=== PATIENT | female | born 1965 | race Caucasian/White ===

== ENCOUNTER → 2017-02-01 | Outpatient (CLI) | payer OTHER ==
[2016-03-20 14:05] VITALS: BP 109/58
[~2017-02-01] MED LIST: AMOX875T PO; Aspirin PO; CLIN150C14 PO; CLOP75TA57 PO; FLUO20CA8 PO; GABA-586 PO; HYDR-971 PO; LISI-334 PO; LISI5TAB PO; LORA-434 PO; MIRT15TA3 PO; PRAV40TA2 PO; RANI150C PO; TRAZ100T12 PO; TRAZ50TA15 PO
--- NOTE | 2017-02-01 09:51 | RAD ---
Abdominal ultrasound Technique and findings: Real-time grayscale and color Doppler evaluation of the organs of the abdomen is performed. The liver is enlarged, measuring in excess of 21 cm. There is diffuse fatty infiltration as well. No focal hepatic parenchymal abnormalities are identified. No intrahepatic biliary ductal dilatation is seen. Gallbladder is fluid distended and notable for shadowing gallstones. No pericholecystic fluid, gallbladder wall thickening, or tenderness to transducer palpation over the gallbladder fossa. Common bile duct measures 8 mm in diameter, which is upper limits of normal. The IVC is patent. The aorta is nonaneurysmal. Visualized portions of the pancreas are unremarkable. Spleen is normal in appearance. The right kidney measures 10.7 x 5.2 x 3.9 cm and the left measures 10.2 x 4.0 x 4.1 cm. There is no hydronephrosis or focal parenchymal abnormality involving either kidney. Both kidneys demonstrate normal color Doppler flow. No free or loculated fluid collections are seen within the abdomen or pelvis. Impression: 1. Cholelithiasis without sonographic evidence of acute cholecystitis. 2. Hepatomegaly with diffuse fatty infiltration of the liver.
== END | disposition home or self-care (01) ==
LOC: US 08:29
PROVIDERS: ATTEND Family Medicine
DX: K80.20 Calculus of gallbladder without cholecystitis without obstruction (principal); K76.0 Fatty (change of) liver, not elsewhere classified
CPT/HCPCS: 76700

== ENCOUNTER 2017-02-16 08:49 | Observation (INO) | payer OTHER ==
[2017-02-16] VITALS (9 sets, daily range): BP systolic 119–133; BP diastolic 52–85
[~2017-02-16] VITALS: Ht 157.5 cm; Wt 78.9 kg
[~2017-02-16 08:49] MED LIST changes: +HYDROmorphone 2 MG/ML VIAL IV PRN; +IV RINGERS,LACTATED 1000ML 1,000 ML IV SCH; +LIDOCAINE 1% 1 ML SYRINGE. ID PRN; +MORPHINE SULFATE 2 MG/ML DISP.SYRIN. IV PRN; +ONDANSETRON PF 4 MG/2 ML VIAL. IV PRN; +PROCHLORPERAZINE 10 MG/2 ML VIAL. IV PRN; +fentaNYL PF VIAL 100 MCG/2 ML VIAL IV PRN
[2017-02-16] MEDS ORDERED: FENO145T2 PO (09:23)
[2017-02-16] MEDS ORDERED: SPIR25TA3 PO (09:23)
[2017-02-16] MEDS ORDERED: ROPI1TAB2 PO (09:23)
[2017-02-16 09:55] LABS: BASO # 0.1 x10^3/uL (0.0-0.2); BASO % 1 % (0-3); EOS % 3 % (0-3); HEMATOCRIT 44.9 % (36.0-47.0); HEMOGLOBIN 14.8 g/dL (12.0-15.5); LYMPH # 1.5 x10^3/uL (1.0-4.8); LYMPH % 17 % (24-48); MEAN CORPUSCULAR HEMOGLOBIN 33 pg (25-35); MEAN CORPUSCULAR HGB CONC 33 g/dL (31-37); MEAN CORPUSCULAR VOLUME 101 fL (79-100); MONO % 9 % (0-9); NEUT % 70 % (31-73); PLATELET COUNT 256 x10^3/uL (140-400); RED BLOOD COUNT 4.46 x10^6/uL (3.50-5.40); RED CELL DISTRIBUTION WIDTH 16.5 % (11.5-14.5); WHITE BLOOD COUNT 9.1 x10^3/uL (4.0-11.0)
[2017-02-16] MEDS ORDERED: ROCURONIUM 100 MG/10 ML VIAL. ONE (11:05)
[2017-02-16] MEDS ORDERED: ONDANSETRON PF 4 MG/2 ML VIAL. ONE (11:05)
[2017-02-16] MEDS ORDERED: fentaNYL PF VIAL 250 MCG/5 ML VIAL ONE (11:05)
[2017-02-16] MEDS ORDERED: MIDAZOLAM HCL/PF 2 MG/2 ML VIAL. ONE (11:05)
[2017-02-16] MEDS ORDERED: PROPOFOL 20 ML IV ONE (11:05)
[2017-02-16] MEDS ORDERED: DEXAMETHASONE SOD PHOS 20 MG/5 ML VIAL. ONE (11:05)
[2017-02-16] MEDS ORDERED: SEVOFLURANE 61 TO 120 MINUTES. IH ONE (11:05)
[2017-02-16] MEDS ORDERED: LIDOCAINE 2% PF Vial for OR 5 ML VIAL. ONE (11:05)
[2017-02-16] MEDS ORDERED: BUPIVACAINE-EPI 0.5%-1:200000 50 ML VIAL. ONE (11:11)
[2017-02-16] MEDS ORDERED: SURGICEL HEMOSTAT 4X8 EACH. ONE ×3 (11:11→13:03)
[2017-02-16] MEDS ORDERED: IOHEXOL 300 MG/ML 50 ML VIAL. ONE (11:11)
[2017-02-16] MEDS ORDERED: LABETALOL 20 MG/4 ML DISP.SYRIN. ONE (12:07)
--- NOTE | 2017-02-16 12:41 | RAD ---
Intraoperative cholangiogram, 02/16/2017: History: Cholecystectomy 7 spot films from surgery are presented for review. Contrast was injected into the cystic duct remnant. 0.8 minutes of fluoroscopy time was utilized. The common duct is mildly dilated.. No filling defect is seen in the common duct to suggest a retained calculus. The major duodenal papilla is mildly prominent but smooth. There is good flow of contrast into the duodenum at the ampulla. The incompletely opacified intrahepatic bile ducts are unremarkable. No contrast extravasation is seen. IMPRESSION: 1. Mild enlargement of the common bile duct. 2. No evidence of a retained biliary tract calculus.
[2017-02-16] MEDS ORDERED: GLYCOPYRROLATE 1 MG/5 ML VIAL. ONE (13:21)
[2017-02-16] MEDS ORDERED: NEOSTIGMINE 10 MG/10 ML VIAL. ONE (13:35)
[2017-02-16] MEDS ORDERED: SEVOFLURANE > 120 MINUTES. IH ONE (13:40)
--- NOTE | 2017-02-16 13:47 | PDOC4 ---
Operative Note Operative Note Operative Note: Preoperative Diagnosis: Symptomatic cholelithiasis Postoperative Diagnosis: Marked chronic calculus cholecystitis Procedure: Laparoscopic cholecystectomy with intraoperative cholangiogram Surgeon: Ben Alley Cleaner: Jelena MANCUSO Anesthesia: Gen. EBL: 200 mL Specimen: Gallbladder to pathology Drains: 19 Syriac round Alo drain to right upper quadrant Complications: None Indication: The patient is a 51-year-old female who is referred with suspected symptomatic cholelithiasis. She was offered surgical treatment with laparoscopic cholecystectomy. The details and risks of surgery were discussed. The risks include bleeding, infection, bile duct injury, bile leak, pain, potential need for additional surgery or procedure. She understands and would like to proceed. Description: The patient was taken to the operating room and placed supine on the operating table. Gen. anesthesia was performed. The abdomen was prepped with ChloraPrep and draped in a standard surgical manner. A small supraumbilical incision was made in the skin through which a Veress needle was inserted and a pneumoperitoneum was created. A visualized 5 mm trocar was inserted and the laparoscope was introduced. In the superior midabdomen a 5 mm trocar was inserted. In the right upper quadrant 2 additional 5 mm trochars were inserted. The gallbladder was identified and had marked adhesions to the omentum. 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 We began mobilizing the omentum off the gallbladder. Manipulation of the gallbladder was very difficult due to the indurated and fibrotic chronic inflammatory reaction. We gradually continue dissection inferiorly. The cystic duct was mobilized from surrounding tissues. One clip was placed on the duct near the gallbladder junction. An opening was made in the cystic duct and a cholangiocatheter placed within and secured with a clip. Using contrast dye and the C-arm an intraoperative cholangiogram performed. No filling defects were identified in the major bile ducts. There was mild dilation of the distal common duct and contrast readily passed into the duodenum. The clip and catheter were both withdrawn. 3 clips were placed on the cystic duct and it was divided. The cystic artery became readily apparent posterior to the duct. This was mobilized doubly clipped and divided. The gallbladder was then mobilized away from the liver primarily with cautery. This proved difficult due to the marked chronic inflammatory reaction which obscured the normal tissue planes. Gradually we were able to fully free up the gallbladder off the liver. There was a very superficial yet sizable vein on the gallbladder fossa that showed prominent oozing. This was readily controlled using FloSeal and Surgicel packs. The superior 5 mm trocar was then exchanged with an 11 mm trocar. A 19 Syriac round Alo drain was left in the right upper quadrant with an exit site in the right lateral port incision. This was secured to the skin with 2-0 silk. The gallbladder was then placed in an endoscopic bag and extracted at the superior incision site. The fascia and skin incisions had to be extended some due to the thickened gallbladder. The fascia was then closed using interrupted 0 PDS sutures. The abdomen was reinsufflated and reexamined. Hemostasis appeared good and the drain remained intact. No other abnormalities were identified. The remaining ports were removed and the pneumoperitoneum was relieved. The skin at all incisions was closed with 4-0 Monocryl. Steri-Strips and dressings were applied. The patient tolerated the procedure well and was sent to the recovery room in stable condition. At the end of the case all counts were correct. STEFANI RUBY MD Feb 16, 2017 13:47
[2017-02-16] MEDS ORDERED: 0.9 % SODIUM CHLORIDE 10 ML DISP.SYRIN. IV PRN (14:00)
[2017-02-16] MEDS ORDERED: ONDANSETRON PF 4 MG/2 ML VIAL. IV PRN (14:00)
[2017-02-16] MEDS ORDERED: oxyCODONE/APAP 5/325 1 TAB TABLET PO PRN (14:00)
[2017-02-16] MEDS ORDERED: HYDROmorphone 2 MG/ML VIAL IV PRN (14:00)
[2017-02-16] MEDS ORDERED: DEXTROSE 50% 25 GM / 50ML DISP.SYRIN. IV PRN (14:00)
[2017-02-16] MEDS ORDERED: ALBUTEROL SULFATE 2.5 MG/3 ML NEBU. NEB ONE (14:45)
[2017-02-16] MEDS ORDERED: hydrALAZINE 20 MG/ML VIAL. ONE (15:23)
[2017-02-16] MEDS: FAMOTIDINE 20 MG TABLET. PO SCH (17:15)
[2017-02-16] MEDS: IV 1/2 NORMAL SALINE 1,000 ML IV SCH (17:15)
[2017-02-16] MEDS: SPIRONOLACTONE 25 MG TABLET PO SCH (17:15)
[2017-02-16] MEDS: rOPINIRole 1 MG TABLET. PO SCH (17:15)
[2017-02-16] MEDS: GABAPENTIN 300 MG CAPSULE. PO SCH ×2 (17:15→20:42)
[2017-02-16] MEDS: oxyCODONE/APAP 5/325 1 TAB TABLET PO PRN (17:16)
[2017-02-16] MEDS: ATORVASTATIN CALCIUM 10 MG TABLET. PO SCH (20:42)
[2017-02-16] MEDS ORDERED: traZODone 100 MG TABLET. PO SCH (21:00)
[2017-02-16] MEDS ORDERED: PNEUMOCOCCAL VAX SCREEN BY RX. MC PRN (21:30)
[2017-02-16] MEDS ORDERED: INFLUENZA VAX SCREEN BY RX. MC ONE (21:30)
[2017-02-17 03:00] VITALS: BP 101/48
[2017-02-17] MEDS: IV 1/2 NORMAL SALINE 1,000 ML IV SCH ×2 (06:00→15:40)
[2017-02-17 07:00] VITALS: BP 103/53
[2017-02-17] MEDS: rOPINIRole 1 MG TABLET. PO SCH (07:59)
[2017-02-17] MEDS: MIRTAZAPINE 15 MG TABLET PO SCH (07:59)
[2017-02-17] MEDS: GABAPENTIN 300 MG CAPSULE. PO SCH ×3 (08:00→20:05)
[2017-02-17] MEDS: FLUoxetine HCL 20 MG CAPSULE PO SCH (08:00)
[2017-02-17] MEDS: FAMOTIDINE 20 MG TABLET. PO SCH (08:00)
[2017-02-17] MEDS: oxyCODONE/APAP 5/325 1 TAB TABLET PO PRN (08:00)
[2017-02-17] MEDS: SPIRONOLACTONE 25 MG TABLET PO SCH (09:00)
[2017-02-17 09:03] LABS: BASO # 0.1 x10^3/uL (0.0-0.2); BASO % 1 % (0-3); EOS % 0 % (0-3); HEMATOCRIT 39.4 % (36.0-47.0); HEMOGLOBIN 13.1 g/dL (12.0-15.5); LYMPH # 1.2 x10^3/uL (1.0-4.8); LYMPH % 7 % (24-48); MEAN CORPUSCULAR HEMOGLOBIN 34 pg (25-35); MEAN CORPUSCULAR HGB CONC 33 g/dL (31-37); MEAN CORPUSCULAR VOLUME 100 fL (79-100); MONO % 7 % (0-9); NEUT % 85 % (31-73); PLATELET COUNT 224 x10^3/uL (140-400); RED BLOOD COUNT 3.92 x10^6/uL (3.50-5.40); RED CELL DISTRIBUTION WIDTH 16.8 % (11.5-14.5); WHITE BLOOD COUNT 16.4 x10^3/uL (4.0-11.0)
[2017-02-17 09:48] LABS: PLT ESTIMATE ADEQUATE (ADEQUATE)
[2017-02-17 11:00] VITALS: BP 118/59
--- NOTE | 2017-02-17 12:42 | PDOC ---
MARIA LUISA RODRIGEZ DIRECTOR GLOBAL DEVELOPMENT 02/17/17 1242: SURGICAL PROGRESS NOTE Subjective tolerating diet pain managed ambulating o2 dropping in 60% on RA--does not wear o2 at home, hx of COPD Vital Signs Vital Signs Date Time Temp Pulse Resp B/P (MAP) Pulse Ox O2 Delivery O2 Flow Rate FiO2 02/17/17 11:00 98.1 69 20 118/59 (78) 85 Nasal Cannula 3.0 98.1 General: Alert, Oriented X3, Cooperative, No acute distress Abdomen: Soft, Other (lap dressings dry, Jayden bloody) Labs Laboratory Tests Test 02/16/17 09:40 02/17/17 08:10 White Blood Count 9.1 x10^3/uL (4.0-11.0) 16.4 x10^3/uL (4.0-11.0) Red Blood Count 4.46 x10^6/uL (3.50-5.40) 3.92 x10^6/uL (3.50-5.40) Hemoglobin 14.8 g/dL (12.0-15.5) 13.1 g/dL (12.0-15.5) Hematocrit 44.9 % (36.0-47.0) 39.4 % (36.0-47.0) Mean Corpuscular Volume 101 fL (79-100) 100 fL (79-100) Mean Corpuscular Hemoglobin 33 pg (25-35) 34 pg (25-35) Mean Corpuscular Hemoglobin Concent 33 g/dL (31-37) 33 g/dL (31-37) Red Cell Distribution Width 16.5 % (11.5-14.5) 16.8 % (11.5-14.5) Platelet Count 256 x10^3/uL (140-400) 224 x10^3/uL (140-400) Neutrophils (%) (Auto) 70 % (31-73) 85 % (31-73) Lymphocytes (%) (Auto) 17 % (24-48) 7 % (24-48) Monocytes (%) (Auto) 9 % (0-9) 7 % (0-9) Eosinophils (%) (Auto) 3 % (0-3) 0 % (0-3) Basophils (%) (Auto) 1 % (0-3) 1 % (0-3) Neutrophils # (Auto) 6.3 x10^3uL (1.8-7.7) 14.0 x10^3uL (1.8-7.7) Lymphocytes # (Auto) 1.5 x10^3/uL (1.0-4.8) 1.2 x10^3/uL (1.0-4.8) Monocytes # (Auto) 0.8 x10^3/uL (0.0-1.1) 1.2 x10^3/uL (0.0-1.1) Eosinophils # (Auto) 0.3 x10^3/uL (0.0-0.7) 0.0 x10^3/uL (0.0-0.7) Basophils # (Auto) 0.1 x10^3/uL (0.0-0.2) 0.1 x10^3/uL (0.0-0.2) Segmented Neutrophils % 89 % (35-66) Lymphocytes % 3 % (24-48) Monocytes % 8 % (0-10) Platelet Estimate Adequate (ADEQUATE) Laboratory Tests Test 02/17/17 08:10 White Blood Count 16.4 x10^3/uL (4.0-11.0) Red Blood Count 3.92 x10^6/uL (3.50-5.40) Hemoglobin 13.1 g/dL (12.0-15.5) Hematocrit 39.4 % (36.0-47.0) Mean Corpuscular Volume 100 fL (79-100) Mean Corpuscular Hemoglobin 34 pg (25-35) Mean Corpuscular Hemoglobin Concent 33 g/dL (31-37) Red Cell Distribution Width 16.8 % (11.5-14.5) Platelet Count 224 x10^3/uL (140-400) Neutrophils (%) (Auto) 85 % (31-73) Lymphocytes (%) (Auto) 7 % (24-48) Monocytes (%) (Auto) 7 % (0-9) Eosinophils (%) (Auto) 0 % (0-3) Basophils (%) (Auto) 1 % (0-3) Neutrophils # (Auto) 14.0 x10^3uL (1.8-7.7) Lymphocytes # (Auto) 1.2 x10^3/uL (1.0-4.8) Monocytes # (Auto) 1.2 x10^3/uL (0.0-1.1) Eosinophils # (Auto) 0.0 x10^3/uL (0.0-0.7) Basophils # (Auto) 0.1 x10^3/uL (0.0-0.2) Segmented Neutrophils % 89 % (35-66) Lymphocytes % 3 % (24-48) Monocytes % 8 % (0-10) Platelet Estimate Adequate (ADEQUATE) Assessment/Plan s/p lap ras continue drain will consult pulm for hypoxia, copd dc when pulm eval complete, will need JAYDEN for 1 week, FU in clinic Problems: STEFANI RUBY MD 02/17/17 1328: SURGICAL PROGRESS NOTE Assessment/Plan Above reviewed, note postop hypoxia, Pulm to see Problems: MARIA LUISA RODRIGEZ DIRECTOR GLOBAL DEVELOPMENT Feb 17, 2017 12:42 STEFANI RUBY MD Feb 17, 2017 13:28
[2017-02-17] MEDS ORDERED: OXYC1TAB7 PO (12:46)
--- NOTE | 2017-02-17 13:59 | RAD ---
Single Views of the Chest 02/17/2017 2:14 PM Indication: hypoxemia Comparison: Chest radiograph February 29, 2016 Findings: Low inspiratory volumes are noted. There are linear infiltrates or atelectasis in the left lung base. No pneumothorax or definitive effusion is seen. Heart size is normal. Bony thorax is unchanged. Impression: Low lung volumes with left basilar atelectasis or infiltrate. Consider follow-up two-view chest radiographs with attention to depth of inspiration.
[2017-02-17 15:00] VITALS: BP 108/49
--- NOTE | 2017-02-17 15:05 | PDOC ---
PULMONARY PROGRESS NOTES Vitals Vital Signs Date Time Temp Pulse Resp B/P (MAP) Pulse Ox O2 Delivery O2 Flow Rate FiO2 02/17/17 11:00 98.1 69 20 118/59 (78) 85 Nasal Cannula 3.0 98.1 Lungs: Clear Labs Laboratory Tests Test 02/16/17 09:40 02/17/17 08:10 White Blood Count 9.1 x10^3/uL (4.0-11.0) 16.4 x10^3/uL (4.0-11.0) Red Blood Count 4.46 x10^6/uL (3.50-5.40) 3.92 x10^6/uL (3.50-5.40) Hemoglobin 14.8 g/dL (12.0-15.5) 13.1 g/dL (12.0-15.5) Hematocrit 44.9 % (36.0-47.0) 39.4 % (36.0-47.0) Mean Corpuscular Volume 101 fL (79-100) 100 fL (79-100) Mean Corpuscular Hemoglobin 33 pg (25-35) 34 pg (25-35) Mean Corpuscular Hemoglobin Concent 33 g/dL (31-37) 33 g/dL (31-37) Red Cell Distribution Width 16.5 % (11.5-14.5) 16.8 % (11.5-14.5) Platelet Count 256 x10^3/uL (140-400) 224 x10^3/uL (140-400) Neutrophils (%) (Auto) 70 % (31-73) 85 % (31-73) Lymphocytes (%) (Auto) 17 % (24-48) 7 % (24-48) Monocytes (%) (Auto) 9 % (0-9) 7 % (0-9) Eosinophils (%) (Auto) 3 % (0-3) 0 % (0-3) Basophils (%) (Auto) 1 % (0-3) 1 % (0-3) Neutrophils # (Auto) 6.3 x10^3uL (1.8-7.7) 14.0 x10^3uL (1.8-7.7) Lymphocytes # (Auto) 1.5 x10^3/uL (1.0-4.8) 1.2 x10^3/uL (1.0-4.8) Monocytes # (Auto) 0.8 x10^3/uL (0.0-1.1) 1.2 x10^3/uL (0.0-1.1) Eosinophils # (Auto) 0.3 x10^3/uL (0.0-0.7) 0.0 x10^3/uL (0.0-0.7) Basophils # (Auto) 0.1 x10^3/uL (0.0-0.2) 0.1 x10^3/uL (0.0-0.2) Segmented Neutrophils % 89 % (35-66) Lymphocytes % 3 % (24-48) Monocytes % 8 % (0-10) Platelet Estimate Adequate (ADEQUATE) Laboratory Tests Test 02/17/17 08:10 White Blood Count 16.4 x10^3/uL (4.0-11.0) Red Blood Count 3.92 x10^6/uL (3.50-5.40) Hemoglobin 13.1 g/dL (12.0-15.5) Hematocrit 39.4 % (36.0-47.0) Mean Corpuscular Volume 100 fL (79-100) Mean Corpuscular Hemoglobin 34 pg (25-35) Mean Corpuscular Hemoglobin Concent 33 g/dL (31-37) Red Cell Distribution Width 16.8 % (11.5-14.5) Platelet Count 224 x10^3/uL (140-400) Neutrophils (%) (Auto) 85 % (31-73) Lymphocytes (%) (Auto) 7 % (24-48) Monocytes (%) (Auto) 7 % (0-9) Eosinophils (%) (Auto) 0 % (0-3) Basophils (%) (Auto) 1 % (0-3) Neutrophils # (Auto) 14.0 x10^3uL (1.8-7.7) Lymphocytes # (Auto) 1.2 x10^3/uL (1.0-4.8) Monocytes # (Auto) 1.2 x10^3/uL (0.0-1.1) Eosinophils # (Auto) 0.0 x10^3/uL (0.0-0.7) Basophils # (Auto) 0.1 x10^3/uL (0.0-0.2) Segmented Neutrophils % 89 % (35-66) Lymphocytes % 3 % (24-48) Monocytes % 8 % (0-10) Platelet Estimate Adequate (ADEQUATE) Medications Active Scripts Medications Dose Route/Sig Max Daily Dose Days Date Category Fenofibrate (Fenofibrate Nanocrystallized) 145 Mg Tablet 1 Tab PO DAILY 02/16/17 Reported Ropinirole Hcl 1 Mg Tablet 1 Mg PO DAILY 02/16/17 Reported Spironolactone 25 Mg Tablet 1 Tab PO DAILY 02/16/17 Reported Goodman 5-325 Tablet (Acetaminophen/Hydrocodone Bitart) 1 Each Tablet 1 Tab PO PRN Q6HRS PRN 12/30/15 Rx Fluoxetine Hcl 20 Mg Capsule 20 Mg PO DAILY 11/21/14 Reported Mirtazapine 15 Mg Tablet 15 Mg PO DAILY 11/21/14 Reported Gabapentin 300 Mg Capsule 300 Mg PO TID 11/21/14 Reported Trazodone Hcl 100 Mg Tablet 100 Tab PO QHS 05/01/14 Rx Plavix (Clopidogrel Bisulfate) 75 Mg Tablet 75 Mg PO DAILYWBKFT 01/04/14 Rx Ranitidine Hcl 150 Mg Capsule 150 Mg PO DAILY 01/01/14 Reported Pravastatin Sodium 40 Mg Tablet 40 Mg PO DAILY 01/01/14 Reported Impression . FULL CONSULT DICTATED THANKS AVOID SEDATING MED PRN PUJA BE MD Feb 17, 2017 15:05
--- NOTE | 2017-02-17 15:52 | PATHOLOGY ---
PATHOLOGY REPORT * * * * * * * * FINAL DIAGNOSIS: Gallbladder "gallbladder and contents": - Chronic cholecystitis with fibrosis, calcified wilkinson and with cholelithiasis. (SHA/db; 02/17/2017) REPORT ELECTRONICALLY SIGNED BY: Theo Red M.D. DATE/TIME: 02/17/2017 15:51 * * * * * * * * GROSS PATHOLOGY: Received in formalin labeled "Mahesh Aponte, gallbladder with contents," is a 7.1 x 4.4 x 5.0 cm, intact gallbladder with light bui, slightly wrinkled serosal surfaces. Opening the gallbladder reveals light bui, grainy mucosa and an average wall thickness of 0.3 cm. Calculi are present, measuring 0.2-1.9 cm in maximum dimension, displaying a light bui color and granular appearance, and feeling friable to the touch. No masses are noted grossly. Game Developer sections from the body and fundus are submitted along with the proximal margin in cassette A1. (TSD; 02/16/2017) INITIAL CPT CODE(S): A; 47081 Professional services performed by [facility] [place] [address] Technical services performed by [facility] at [address] [place] [address]. SPECIMEN(S) RECEIVED: A.Gallbladder and contents CLINICAL HISTORY: Pre-OP DX: symptomatic cholelithiasis PATIENT: MAHESH APONTE /AGE: 7 1965 (Age: 51) PATIENT #: [id number] ALT CASE #: SPECIMEN COLLECTION DATE: 02/16/2017 SPECIMEN RECEIVED DATE: 02/16/2017 [facility] - [address] [place] [address] - PHONE: [phone] * * * END OF REPORT * * *
[2017-02-17 19:00] VITALS: BP 125/65
--- NOTE | 2017-02-17 19:22 | CONS ---
DATE OF CONSULTATION: 02/17/2017 ATTENDING PHYSICIAN: Garrett Contreras MD. REASON FOR CONSULTATION: The patient is seen in pulmonary consultation at the request of Dr. Contreras for hypoxemia. HISTORY OF PRESENT ILLNESS: The patient is a 51-year-old with a history of COPD, has cut down quite a bit on her smoking, presented for elective cholecystectomy. She was found to have hypoxemia post-surgery. I was asked to see her in consultation. During my evaluation, the patient was somewhat sleepy, she has received some sedation, she was not taking any deep breath. I queried her about COPD exacerbation, she experiences approximately 2 per year. Otherwise, she has daily cough mostly nonproductive, no hemoptysis. No prior history of DVT or pulmonary embolism. She does not wear oxygen at home. PAST MEDICAL HISTORY: COPD, tobacco dependence, CVA, carotid artery stenosis, hypertension, hyperlipidemia, gastroesophageal reflux. PAST SURGICAL HISTORY: Status post tonsillectomy and tubal ligation. HOME MEDICATIONS: List was reviewed. She is utilizing Advair and p.r.n. albuterol. ALLERGIES: No known drug allergies. SOCIAL HISTORY: She continues to smoke. Denies any alcohol intake. Lives with her . REVIEW OF SYSTEMS: As indicated above, but otherwise, 10-point system was reviewed and negative. PHYSICAL EXAMINATION: VITAL SIGNS: She is currently requiring 3 liters of oxygen supplementation to maintain saturations above 90%, at one point she was down to 85%. HEENT: Eyes, the sclerae were nonicteric. NECK: Jugular venous distention was not elevated. No lymphadenopathy. CHEST: Full expansion. LUNGS: Poor airway flow with crackles in the bases. No wheezes. CARDIOVASCULAR: Regular rate and rhythm with S1, S2, no S3. ABDOMEN: Soft, nontender, nondistended. EXTREMITIES: No clubbing, cyanosis or pitting edema. NEUROLOGIC: The patient was sleepy, but arousable. A detailed neuro exam was not performed. LABORATORY DATA: Chest x-ray is pending. Labs were reviewed. Arterial blood gas, none available. White count was slightly elevated. IMPRESSION: 1. Acute respiratory failure secondary to underlying chronic obstructive pulmonary disease, recent surgery with poor inspiratory effort and hypoventilation from pain medication. 2. Status post laparoscopic cholecystectomy. 3. Tobacco dependence. 4. Cerebrovascular accident. 5. Carotid artery stenosis. 6. Hypertension. PLAN: 1. I spoke with the patient that she needs to try to avoid any additional pain medication. I spoke with the nurse and informed her of the same. 2. Place the patient on end tidal CO2 monitor. 3. Discontinue Dilaudid. 4. Discontinue trazodone. 4. Monitor for any further respiratory distress. 5. Obtain chest x-ray. 6. Incentive spirometry. The above was discussed with the at the bedside and the patient. All questions were answered. I do appreciate the privilege of sharing in this patient's care. PUJA MOSQUERA MD DR: DREW/maxine JOB#: [id number] / [id number]
[2017-02-17] MEDS: ATORVASTATIN CALCIUM 10 MG TABLET. PO SCH (20:05)
[2017-02-17 23:00] VITALS: BP 119/61
[2017-02-18 03:00] VITALS: BP 143/63
[2017-02-18] MEDS: IV 1/2 NORMAL SALINE 1,000 ML IV SCH (03:19)
[2017-02-18 07:20] VITALS: BP 136/64
[2017-02-18] MEDS: rOPINIRole 1 MG TABLET. PO SCH (10:01)
[2017-02-18] MEDS: GABAPENTIN 300 MG CAPSULE. PO SCH (10:01)
[2017-02-18] MEDS: MIRTAZAPINE 15 MG TABLET PO SCH (10:01)
[2017-02-18] MEDS: FAMOTIDINE 20 MG TABLET. PO SCH (10:01)
[2017-02-18] MEDS: FLUoxetine HCL 20 MG CAPSULE PO SCH (10:01)
[2017-02-18] MEDS: SPIRONOLACTONE 25 MG TABLET PO SCH (10:01)
--- NOTE | 2017-02-18 10:21 | PDOC ---
PULMONARY PROGRESS NOTES Subjective PT FEELS BETTER READY FOR D/C Vitals Vital Signs Date Time Temp Pulse Resp B/P (MAP) Pulse Ox O2 Delivery O2 Flow Rate FiO2 02/18/17 07:20 96.3 69 16 136/64 (88) 3 Nasal Cannula 96.3 02/18/17 03:00 3.0 ROS: No Nausea, No Chest Pain, No Abdominal Pain, No Increase Cough Lungs: Clear, Crackles Cardiovascular: S1 Abdomen: Soft, Non-tender Neuro Exam: Alert Extremities: No Edema Skin: Warm Labs Laboratory Tests Test 02/17/17 08:10 White Blood Count 16.4 x10^3/uL (4.0-11.0) Red Blood Count 3.92 x10^6/uL (3.50-5.40) Hemoglobin 13.1 g/dL (12.0-15.5) Hematocrit 39.4 % (36.0-47.0) Mean Corpuscular Volume 100 fL (79-100) Mean Corpuscular Hemoglobin 34 pg (25-35) Mean Corpuscular Hemoglobin Concent 33 g/dL (31-37) Red Cell Distribution Width 16.8 % (11.5-14.5) Platelet Count 224 x10^3/uL (140-400) Neutrophils (%) (Auto) 85 % (31-73) Lymphocytes (%) (Auto) 7 % (24-48) Monocytes (%) (Auto) 7 % (0-9) Eosinophils (%) (Auto) 0 % (0-3) Basophils (%) (Auto) 1 % (0-3) Neutrophils # (Auto) 14.0 x10^3uL (1.8-7.7) Lymphocytes # (Auto) 1.2 x10^3/uL (1.0-4.8) Monocytes # (Auto) 1.2 x10^3/uL (0.0-1.1) Eosinophils # (Auto) 0.0 x10^3/uL (0.0-0.7) Basophils # (Auto) 0.1 x10^3/uL (0.0-0.2) Segmented Neutrophils % 89 % (35-66) Lymphocytes % 3 % (24-48) Monocytes % 8 % (0-10) Platelet Estimate Adequate (ADEQUATE) Medications Active Scripts Medications Dose Route/Sig Max Daily Dose Days Date Category Fenofibrate (Fenofibrate Nanocrystallized) 145 Mg Tablet 1 Tab PO DAILY 02/16/17 Reported Ropinirole Hcl 1 Mg Tablet 1 Mg PO DAILY 02/16/17 Reported Spironolactone 25 Mg Tablet 1 Tab PO DAILY 02/16/17 Reported Hastings 5-325 Tablet (Acetaminophen/Hydrocodone Bitart) 1 Each Tablet 1 Tab PO PRN Q6HRS PRN 12/30/15 Rx Fluoxetine Hcl 20 Mg Capsule 20 Mg PO DAILY 11/21/14 Reported Mirtazapine 15 Mg Tablet 15 Mg PO DAILY 11/21/14 Reported Gabapentin 300 Mg Capsule 300 Mg PO TID 11/21/14 Reported Trazodone Hcl 100 Mg Tablet 100 Tab PO QHS 05/01/14 Rx Plavix (Clopidogrel Bisulfate) 75 Mg Tablet 75 Mg PO DAILYWBKFT 01/04/14 Rx Ranitidine Hcl 150 Mg Capsule 150 Mg PO DAILY 01/01/14 Reported Pravastatin Sodium 40 Mg Tablet 40 Mg PO DAILY 01/01/14 Reported Impression . 1. Acute respiratory failure secondary to underlying chronic obstructive pulmonary disease, recent surgery with poor inspiratory effort and hypoventilation from pain medication. 2. Status post laparoscopic cholecystectomy. 3. Tobacco dependence. 4. Cerebrovascular accident. 5. Carotid artery stenosis. 6. Hypertension. Plan . 6 MIN WALK POSITIVE WILL NEED 02 RX WRITTEN 1 D/C HOME FOLLOW UP WITH ME 2. Place the patient on end tidal CO2 monitor. 3. Discontinue Dilaudid. 4. Discontinue trazodone. 4. Monitor for any further respiratory distress. 5. CXR REVIEWED 6. Incentive spirometry. PUJA MOSQUERA MD Feb 18, 2017 10:21
[2017-02-18 10:58] VITALS: BP 147/61
--- NOTE | 2017-02-18 12:38 | PDOC ---
SURGICAL PROGRESS NOTE Subjective tolerating diet will need O2 at home, pulm has seen Vital Signs Vital Signs Date Time Temp Pulse Resp B/P (MAP) Pulse Ox O2 Delivery O2 Flow Rate FiO2 02/18/17 10:58 97.5 78 16 147/61 (89) 91 Room Air 97.5 02/18/17 08:10 2.0 General: Alert, Oriented X3, Cooperative, No acute distress Abdomen: Soft, Other (lap sites c/d/i, no erythema, WENCESLAO serosang) Labs Laboratory Tests Test 02/17/17 08:10 White Blood Count 16.4 x10^3/uL (4.0-11.0) Red Blood Count 3.92 x10^6/uL (3.50-5.40) Hemoglobin 13.1 g/dL (12.0-15.5) Hematocrit 39.4 % (36.0-47.0) Mean Corpuscular Volume 100 fL (79-100) Mean Corpuscular Hemoglobin 34 pg (25-35) Mean Corpuscular Hemoglobin Concent 33 g/dL (31-37) Red Cell Distribution Width 16.8 % (11.5-14.5) Platelet Count 224 x10^3/uL (140-400) Neutrophils (%) (Auto) 85 % (31-73) Lymphocytes (%) (Auto) 7 % (24-48) Monocytes (%) (Auto) 7 % (0-9) Eosinophils (%) (Auto) 0 % (0-3) Basophils (%) (Auto) 1 % (0-3) Neutrophils # (Auto) 14.0 x10^3uL (1.8-7.7) Lymphocytes # (Auto) 1.2 x10^3/uL (1.0-4.8) Monocytes # (Auto) 1.2 x10^3/uL (0.0-1.1) Eosinophils # (Auto) 0.0 x10^3/uL (0.0-0.7) Basophils # (Auto) 0.1 x10^3/uL (0.0-0.2) Segmented Neutrophils % 89 % (35-66) Lymphocytes % 3 % (24-48) Monocytes % 8 % (0-10) Platelet Estimate Adequate (ADEQUATE) Problem List s/p lap ras home with Drain FU next week FU with pulm Problems: NICKEL,MARIA LUISA L OPERATING SYSTEMS SPECIALIST Feb 18, 2017 12:38
== END 2017-02-18 14:00 | disposition home or self-care (01) ==
LOC: SURG 08:49 → 4 NORTH 13:55
PROVIDERS: ADMIT Surgery; ATTEND Surgery
DX: K80.10 Calculus of gallbladder with chronic cholecystitis without obstruction (principal); J44.1 Chronic obstructive pulmonary disease with (acute) exacerbation; J96.01 Acute respiratory failure with hypoxia; F17.200 Nicotine dependence, unspecified, uncomplicated; E78.5 Hyperlipidemia, unspecified; I10 Essential (primary) hypertension; I65.29 Occlusion and stenosis of unspecified carotid artery; K21.9 Gastro-esophageal reflux disease without esophagitis; K66.0 Peritoneal adhesions (postprocedural) (postinfection); Z86.73 Personal history of transient ischemic attack (TIA), and cerebral infarction without residual deficits
CPT/HCPCS: 36415; 47563; 71010; 74300; 85007; 85025; 88304; 94620; 94640; 96374; C1769; G0378; G0379; J0360; J0690; J1100; J1170; J2250; J2405; J2704; J2710; J3010; J3490; J7030; J7120; J7613; Q9967; J2001

== ENCOUNTER 2017-03-25 18:21 | Inpatient (IN) | payer OTHER ==
[~2017-03-25] VITALS: Ht 157.5 cm; Wt 81.0 kg
[~2017-03-25 18:21] MED LIST changes: +FENO145T2 PO; -HYDROmorphone 2 MG/ML VIAL IV PRN; -IV RINGERS,LACTATED 1000ML 1,000 ML IV SCH; -LIDOCAINE 1% 1 ML SYRINGE. ID PRN; -MORPHINE SULFATE 2 MG/ML DISP.SYRIN. IV PRN; -ONDANSETRON PF 4 MG/2 ML VIAL. IV PRN; +OXYC1TAB7 PO; -PROCHLORPERAZINE 10 MG/2 ML VIAL. IV PRN; +ROPI1TAB2 PO; +SPIR25TA3 PO; -fentaNYL PF VIAL 100 MCG/2 ML VIAL IV PRN
[2017-03-25] MEDS ORDERED: ONDANSETRON PF 4 MG/2 ML VIAL. IV ONE (18:45)
[2017-03-25] MEDS ORDERED: fentaNYL PF VIAL 100 MCG/2 ML VIAL IV PRN ×2 (18:45→21:15)
[2017-03-25] MEDS ORDERED: IV NORMAL SALINE 1000ML BAG 1,000 ML IV SCH (18:45)
[2017-03-25] MEDS ORDERED: FAMOTIDINE 20 MG/2 ML VIAL IVP ONE (18:45)
--- NOTE | 2017-03-25 18:54 | PHYS DOC ---
Past Medical History Past Medical History: Asthma, Bronchitis, CVA, Hypertension Past Surgical History: Other Additional Past Surgical Histo: endarectomy Alcohol Use: None Drug Use: None Adult General Chief Complaint Chief Complaint: FLANK PAIN HPI HPI Patient is a 51 year old female who presents with complaint of right-sided abdominal pain and flank pain for the past 10 days. Patient states that the pain has been progressively worsening over the past week and a half. Patient states that the pain radiates towards her right lower quadrant. Patient describes the pain as throbbing but also is intermittently sharp. Patient denies any associated diarrhea, nausea, vomiting, or fever with her symptoms. Patient states that she has noticed increased urinary frequency but denies dysuria or hematuria. Patient has been taking ibuprofen with symptoms with no relief. Patient denies history of similar symptoms. The patient was recently admitted to the hospital on February 16 and underwent a laparoscopic cholecystectomy. Patient states that she has been healing well from her surgery and had been feeling quite a bit better until the last 10 days. Review of Systems Review of Systems Constitutional: Denies fever or chills [] Eyes: Denies change in visual acuity, redness, or eye pain [] HENT: Denies nasal congestion or sore throat [] Respiratory: Denies cough or shortness of breath [] Cardiovascular: Denies chest pain or edema[] GI: Abdominal pain, right flank pain, denies nausea, vomiting, bloody stools or diarrhea [] : Increased urinary frequency, denies dysuria or hematuria [] Musculoskeletal: Denies back pain or joint pain [] Integument: Denies rash or skin lesions [] Neurologic: Denies headache, focal weakness or sensory changes [] Current Medications Current Medications Current Medications Medications (Trade) Dose Ordered Sig/[facility] Start Time Stop Time Status Last Admin Dose Admin Famotidine (Pepcid) 20 mg 1X ONCE 03/25/17 18:45 03/25/17 18:51 DC 03/25/17 19:07 20 MG Fentanyl Citrate (Fentanyl 2ml Vial) 50 mcg PRN Q15MIN PRN 03/25/17 18:45 03/26/17 18:44 03/25/17 19:07 50 MCG Info (Do NOT chart on this entry -- for MONITORING) 1 each PRN DAILY PRN 03/25/17 20:00 03/27/17 19:59 Iohexol (Omnipaque 240 Mg/ml) 50 ml 1X ONCE 03/25/17 20:00 03/25/17 20:01 DC 03/25/17 20:26 50 ML Iohexol (Omnipaque 300 Mg/ml) 75 ml 1X ONCE 03/25/17 20:00 03/25/17 20:01 DC 03/25/17 20:19 75 ML Ondansetron HCl (Zofran) 4 mg 1X ONCE 03/25/17 18:45 03/25/17 18:51 DC 03/25/17 19:07 4 MG Sodium Chloride 1,000 ml @ 100 mls/hr Q10H 03/25/17 18:45 03/26/17 04:44 03/25/17 19:07 100 MLS/HR Allergies Allergies Allergies Coded Allergies Type Severity Reaction Last Updated Verified No Known Drug Allergies 02/16/17 No Physical Exam Physical Exam Constitutional: Alert, afebrile,, appears in mild to moderate discomfort. [] HENT: Normocephalic, atraumatic, bilateral external ears normal, oropharynx moist, no oral exudates, nose normal. [] Eyes: PERRLA, EOMI, conjunctiva normal, no discharge. [] Neck: Normal range of motion, no tenderness, supple, no stridor. [] Cardiovascular:Heart rate regular rhythm, no murmur [] Lungs & Thorax: Mildly her strict air movement bilaterally, no wheezes, rales[] Abdomen: Bowel sounds normal, soft, tenderness to palpation along right upper and lower quadrant with minimal guarding, no rebound tenderness, no masses, no pulsatile masses. [] Skin: Warm, dry, no erythema, no rash. [] Back: Right CVA tenderness, no midline tenderness, no flank ecchymosis. [] Extremities: No tenderness, no cyanosis, no clubbing, ROM intact, no edema. [] Neurologic: Alert and oriented X 3, normal motor function, normal sensory function, no focal deficits noted. [] Current Patient Data Vital Signs Vital Signs Date Time Temp Pulse Resp B/P (MAP) Pulse Ox O2 Delivery O2 Flow Rate FiO2 03/25/17 19:07 18 95 Nasal Cannula 2.0 03/25/17 18:35 98.1 62 154/70 (98) 98.1 Lab Values Laboratory Tests Test 03/25/17 18:44 03/25/17 19:10 White Blood Count 11.0 x10^3/uL (4.0-11.0) Red Blood Count 4.22 x10^6/uL (3.50-5.40) Hemoglobin 14.2 g/dL (12.0-15.5) Hematocrit 42.7 % (36.0-47.0) Mean Corpuscular Volume 101 fL (79-100) H Mean Corpuscular Hemoglobin 34 pg (25-35) Mean Corpuscular Hemoglobin Concent 33 g/dL (31-37) Red Cell Distribution Width 15.5 % (11.5-14.5) H Platelet Count 207 x10^3/uL (140-400) Neutrophils (%) (Auto) 62 % (31-73) Lymphocytes (%) (Auto) 22 % (24-48) L Monocytes (%) (Auto) 9 % (0-9) Eosinophils (%) (Auto) 6 % (0-3) H Basophils (%) (Auto) 1 % (0-3) Neutrophils # (Auto) 6.8 x10^3uL (1.8-7.7) Lymphocytes # (Auto) 2.4 x10^3/uL (1.0-4.8) Monocytes # (Auto) 0.9 x10^3/uL (0.0-1.1) Eosinophils # (Auto) 0.7 x10^3/uL (0.0-0.7) Basophils # (Auto) 0.1 x10^3/uL (0.0-0.2) Urine Collection Type Unknown Urine Color Yellow Urine Clarity Clear Urine pH 6.0 Urine Specific [place] 1.010 Urine Protein Negative mg/dL (NEG-TRACE) Urine Glucose (UA) Negative mg/dL (NEG) Urine Ketones (Stick) Negative mg/dL (NEG) Urine Blood Negative (NEG) Urine Nitrite Negative (NEG) Urine Bilirubin Negative (NEG) Urine Urobilinogen Dipstick 0.2 mg/dL (0.2 mg/dL) Urine Leukocyte Esterase Negative (NEG) Urine RBC Rare /HPF (0-2) Urine WBC Rare /HPF (0-4) Urine Squamous Epithelial Cells Mod /LPF Urine Bacteria 0 /HPF (0-FEW) Urine Yeast Present /HPF Sodium Level 143 mmol/L (136-145) Potassium Level 3.4 mmol/L (3.5-5.1) L Chloride Level 102 mmol/L (98-107) Carbon Dioxide Level 33 mmol/L (21-32) H Anion Gap 8 (6-14) Blood Urea Nitrogen 9 mg/dL (7-20) Creatinine 0.9 mg/dL (0.6-1.0) Estimated GFR (Cockcroft-Gault) 66.3 BUN/Creatinine Ratio 10 (6-20) Glucose Level 118 mg/dL (70-99) H Calcium Level 9.5 mg/dL (8.5-10.1) Total Bilirubin 0.2 mg/dL (0.2-1.0) Aspartate Amino Transferase (AST) 11 U/L (15-37) L Alanine Aminotransferase (ALT) 18 U/L (14-59) Alkaline Phosphatase 48 U/L (46-116) Troponin I Quantitative < 0.017 ng/mL (0.000-0.055) Total Protein 7.2 g/dL (6.4-8.2) Albumin 3.5 g/dL (3.4-5.0) Albumin/Globulin Ratio 0.9 (1.0-1.7) L Lipase 272 U/L (73-393) Laboratory Tests 03/25/17 18:44 Laboratory Tests 03/25/17 19:10 EKG EKG Interpreted by me: Heart rate 57, sinus rhythm, normal intervals, leftward axis , T-wave inversions in V2 through V4 new onset compared to previous EKG, no acute ST elevations or depressions Radiology/Procedures Radiology/Procedures [facility] [address] [place], [place] [id number] IMAGING REPORT Signed PATIENT: MAHESH SHEA ACCOUNT: [id number] : 1965 LOCATION: ER AGE: 51 SEX: F EXAM STATUS: REG ER ORD. PHYSICIAN: NICHOL SMILEY MD REASON: right-sided abdominal pain for 10 days, no vomiting PROCEDURE: CT ABD PELV W/ORAL&IV CONTRAST CT Abdomen and Pelvis With Intravenous Contrast: History: Right-sided abdominal pain radiating to back for 10 days. Comparison: None.. Technique: After administration of oral and intravenous contrast administration, 75 mL Omnipaque-300, CT of the abdomen and pelvis was performed. Exposure: One or more of the following individualized dose reduction techniques were utilized for this examination: 1. Automated exposure control 2. Adjustment of the mA and/or kV according to patient size 3. Use of iterative reconstruction technique Findings: Liver is unremarkable. Cholecystectomy clips are seen. At the gallbladder fossa, there is a fluid appearing structure which measures roughly 4 x 3 cm in axial dimension x 4.5 cm in craniocaudal dimension. Spleen is unremarkable. Pancreas and bilateral adrenal glands unremarkable. Bilateral kidneys enhance symmetrically. Aortic atherosclerosis is noted. Urinary bladder is unremarkable. Duodenal diverticulum is seen. Adjacent to the 3rd portion of the duodenum, there is a cystic-appearing lesion which measures 2.7 x 2.0 cm in axial dimension x 2.5 cm in craniocaudal dimension. This may represent small enteric duplication cyst or mesenteric cyst. Colonic diverticulosis is noted. There may be a slight inflammatory change involving the distal descending colon. The right colon demonstrates submucosal fat proliferation which can be seen in the setting of chronic inflammation, but no acute inflammatory change is identified involving the right colon. Appendix is without evidence of inflammation. Gynecologic structures have an abnormal appearance. There is a heterogeneous soft tissue appearing structure in the pelvis to left of midline measuring roughly 11 x 8 cm in axial dimension x 7 cm in craniocaudal dimension. It is uncertain if this represents an enlarged ovary or represents heterogeneous exophytic leiomyomata. Right ovary is thought to have a normal appearance. Degenerative changes are present in the spine. Impression: 1. Status post cholecystectomy. Fluid attenuation structure is seen at the gallbladder fossa. This is nonspecific, but could represent biloma versus pre-existing subcapsular hepatic cyst. 2. Colonic diverticulosis. There may be slight inflammation involving the distal descending colon. Consequently, mild diverticulitis versus focal colitis is possible. Recommend clinical correlation. 3. Abnormal appearance to gynecologic structures. There may be enlarged left ovarian mass versus heterogeneous exophytic leiomyomata. 4. Cystic structure adjacent to the duodenum, may be mesenteric cyst versus enteric duplication cyst. Electronically signed by: Bradley Hickman MD (03/25/2017 8:46 PM) [facility] DICTATED and SIGNED BY: BRADLEY HICKMAN MD DATE: 03/25/172036 CC: NICHOL SMILEY MD; MEI OSORIO MD ~ [] Course & Med Decision Making Course & Med Decision Making Pertinent Labs and Imaging studies reviewed. (See chart for details) The patient was started on IV fentanyl and Zofran in the emergency department. Patient's CT scan shows a fluid collection in the gallbladder fossa may represent a biloma. I spoke with Dr. Contreras of general surgery who performed the patient's cholecystectomy. He agreed to consult on patient in hospital. The patient's CT scan showed findings suggesting possible distal colonic diverticulosis. The patient does not show evidence of suprapubic or left lower quadrant tenderness on palpation. I have low suspicion that patient's symptoms are secondary to acute diverticulitis. The patient also shows evidence of possible acute T wave inversions in the precordial leads not present on previous EKG. Given patient's upper abdominal pain, acute coronary syndrome cannot be ruled out at this time. The patient will require rule out of myocardial infarction. I spoke with Dr. Christine who is on-call for Dr. Osorio and he accepted patient on behalf of Dr. Osorio. A consult was placed to Dr. Herman of cardiology to follow patient in hospital. Dragon Disclaimer Dragon Disclaimer This electronic medical record was generated, in whole or in part, using a voice recognition dictation system. Departure Departure Impression: Primary Impression: Abdominal pain Additional Impressions: Abnormal EKG Abdominal fluid collection COPD (chronic obstructive pulmonary disease) Disposition: ADMITTED INPATIENT Admitting Physician: Mei Osorio Condition: STABLE Referrals: MEI OSORIO MD (PCP) Problem Qualifiers Primary Impression: Abdominal pain Abdominal location: right upper quadrant Qualified Codes: R10.11 - Right upper quadrant pain Additional Impressions: COPD (chronic obstructive pulmonary disease) COPD type: unspecified COPD Qualified Codes: J44.9 - Chronic obstructive pulmonary disease, unspecified NICHOL SMILEY MD Mar 25, 2017 18:54
[2017-03-25 19:05] LABS: BILIRUBIN,URINE NEGATIVE (NEG); GLUCOSE,URINE NEGATIVE (NEG); NITRITE,URINE NEGATIVE (NEG); PROTEIN,URINE NEGATIVE (NEG-TRACE); UROBILINOGEN,URINE 0.2 mg/dL (0.2 mg/dL)
[2017-03-25 19:06] LABS: BASO # 0.1 x10^3/uL (0.0-0.2); BASO % 1 % (0-3); EOS % 6 % (0-3); HEMATOCRIT 42.7 % (36.0-47.0); HEMOGLOBIN 14.2 g/dL (12.0-15.5); LYMPH # 2.4 x10^3/uL (1.0-4.8); LYMPH % 22 % (24-48); MEAN CORPUSCULAR HEMOGLOBIN 34 pg (25-35); MEAN CORPUSCULAR HGB CONC 33 g/dL (31-37); MEAN CORPUSCULAR VOLUME 101 fL (79-100); MONO % 9 % (0-9); NEUT % 62 % (31-73); PLATELET COUNT 207 x10^3/uL (140-400); RED BLOOD COUNT 4.22 x10^6/uL (3.50-5.40); RED CELL DISTRIBUTION WIDTH 15.5 % (11.5-14.5)
[2017-03-25 19:21] LABS: RBC,URINE RARE /HPF (0-2); WBC,URINE RARE /HPF (0-4)
[2017-03-25 19:22] LABS: BACTERIA,URINE 0 /HPF (0-FEW); SQUAMOUS EPITHELIAL CELL,UR MOD /LPF; YEAST,URINE PRESENT /HPF
[2017-03-25 19:42] LABS: CALCIUM 9.5 mg/dL (8.5-10.1); CREATININE 0.9 mg/dL (0.6-1.0); GFR 66.3; POTASSIUM 3.4 mmol/L (3.5-5.1)
[2017-03-25 19:46] LABS: ALBUMIN 3.5 g/dL (3.4-5.0); ALBUMIN/GLOBULIN RATIO 0.9 (1.0-1.7); TOTAL BILIRUBIN 0.2 mg/dL (0.2-1.0); TOTAL PROTEIN 7.2 g/dL (6.4-8.2)
[2017-03-25] MEDS ORDERED: CONTRAST GIVEN MC PRN (20:00)
[2017-03-25] MEDS ORDERED: IOHEXOL 240 MG/ML 50ML VIAL. PO ONE (20:00)
[2017-03-25] MEDS ORDERED: IOHEXOL 300 MG/ML 75 ML VIAL IV ONE (20:00)
--- NOTE | 2017-03-25 20:49 | RAD ---
CT Abdomen and Pelvis With Intravenous Contrast: History: Right-sided abdominal pain radiating to back for 10 days. Comparison: None.. Technique: After administration of oral and intravenous contrast administration, 75 mL Omnipaque-300, CT of the abdomen and pelvis was performed. Exposure: One or more of the following individualized dose reduction techniques were utilized for this examination: 1. Automated exposure control 2. Adjustment of the mA and/or kV according to patient size 3. Use of iterative reconstruction technique Findings: Liver is unremarkable. Cholecystectomy clips are seen. At the gallbladder fossa, there is a fluid appearing structure which measures roughly 4 x 3 cm in axial dimension x 4.5 cm in craniocaudal dimension. Spleen is unremarkable. Pancreas and bilateral adrenal glands unremarkable. Bilateral kidneys enhance symmetrically. Aortic atherosclerosis is noted. Urinary bladder is unremarkable. Duodenal diverticulum is seen. Adjacent to the 3rd portion of the duodenum, there is a cystic-appearing lesion which measures 2.7 x 2.0 cm in axial dimension x 2.5 cm in craniocaudal dimension. This may represent small enteric duplication cyst or mesenteric cyst. Colonic diverticulosis is noted. There may be a slight inflammatory change involving the distal descending colon. The right colon demonstrates submucosal fat proliferation which can be seen in the setting of chronic inflammation, but no acute inflammatory change is identified involving the right colon. Appendix is without evidence of inflammation. Gynecologic structures have an abnormal appearance. There is a heterogeneous soft tissue appearing structure in the pelvis to left of midline measuring roughly 11 x 8 cm in axial dimension x 7 cm in craniocaudal dimension. It is uncertain if this represents an enlarged ovary or represents heterogeneous exophytic leiomyomata. Right ovary is thought to have a normal appearance. Degenerative changes are present in the spine. Impression: 1. Status post cholecystectomy. Fluid attenuation structure is seen at the gallbladder fossa. This is nonspecific, but could represent biloma versus pre-existing subcapsular hepatic cyst. 2. Colonic diverticulosis. There may be slight inflammation involving the distal descending colon. Consequently, mild diverticulitis versus focal colitis is possible. Recommend clinical correlation. 3. Abnormal appearance to gynecologic structures. There may be enlarged left ovarian mass versus heterogeneous exophytic leiomyomata. 4. Cystic structure adjacent to the duodenum, may be mesenteric cyst versus enteric duplication cyst. Electronically signed by: Bradley Sanon MD (03/25/2017 8:46 PM) [facility]
[2017-03-25] MEDS: IV NORMAL SALINE 1000ML BAG 1,000 ML IV SCH (21:13)
[2017-03-25] MEDS ORDERED: ACETAMINOPHEN 325 MG TABLET. PO PRN (21:15)
[2017-03-25] MEDS ORDERED: ONDANSETRON PF 4 MG/2 ML VIAL. IV PRN (21:15)
[2017-03-25] MEDS ORDERED: ASPIRIN 325 MG TABLET PO ONE (21:15)
[2017-03-25 22:15] VITALS: BP 107/47
[2017-03-25] MEDS ORDERED: SIMV40TA3 PO (22:20)
[2017-03-25] MEDS ORDERED: TRAZ150T49 PO (22:20)
[2017-03-25 23:45] VITALS: BP 107/47
[2017-03-26] MEDS: rOPINIRole 1 MG TABLET. PO SCH ×2 (00:08→20:57)
[2017-03-26] MEDS: GABAPENTIN 300 MG CAPSULE. PO SCH ×4 (00:08→20:57)
[2017-03-26] MEDS: traZODone 50 MG TABLET. PO SCH ×2 (00:09→20:57)
[2017-03-26 03:25] VITALS: BP 117/72
[2017-03-26 04:45] LABS: BASO # 0.1 x10^3/uL (0.0-0.2); BASO % 1 % (0-3); EOS % 6 % (0-3); HEMATOCRIT 41.4 % (36.0-47.0); HEMOGLOBIN 13.5 g/dL (12.0-15.5); LYMPH # 2.6 x10^3/uL (1.0-4.8); LYMPH % 24 % (24-48); MEAN CORPUSCULAR HEMOGLOBIN 34 pg (25-35); MEAN CORPUSCULAR HGB CONC 33 g/dL (31-37); MEAN CORPUSCULAR VOLUME 103 fL (79-100); MONO % 9 % (0-9); NEUT % 61 % (31-73); PLATELET COUNT 183 x10^3/uL (140-400); RED BLOOD COUNT 4.04 x10^6/uL (3.50-5.40); RED CELL DISTRIBUTION WIDTH 15.9 % (11.5-14.5); WHITE BLOOD COUNT 11.1 x10^3/uL (4.0-11.0)
[2017-03-26 05:20] LABS: CALCIUM 8.7 mg/dL (8.5-10.1); CREATININE 0.9 mg/dL (0.6-1.0); GFR 66.3; POTASSIUM 3.9 mmol/L (3.5-5.1)
[2017-03-26] MEDS: IV NORMAL SALINE 1000ML BAG 1,000 ML IV SCH ×2 (05:51→17:32)
[2017-03-26 07:06] VITALS: BP 120/49
[2017-03-26] MEDS: CLOPIDOGREL BISULFATE 75 MG TABLET PO SCH ×2 (08:00→12:53)
--- NOTE | 2017-03-26 08:39 | PDOC2 ---
NAYA WICK SLUDGE CONTROL ATTENDANT 03/26/17 0839: CARDIAC CONSULT DATE OF CONSULT Date of Consult DATE: 03/26/17 TIME: 08:18 REASON FOR CONSULT Reason for Consult: Abnormal EKG REFERRING PHYSICIAN Referring Physician: Clara SOURCE Source: Chart review, Patient HISTORY OF PRESENT ILLNESS HISTORY OF PRESENT ILLNESS This is a pleasant 51 yo female admitted for complains of continued right side upper abd pain. This is reproducible with palpation. Recently pt had a lap ras. She has been having diarrhea lately. Consult is for abnormal EKG. Denies any CAD but significant for CVA. Denies any VTE as well and no hx of arrhythmias. Reports no CP, SOA and her COPD is under control. Denies any palpitations, dizziness. PAST MEDICAL HISTORY Cardiovascular: HTN, Hyperlipidemia, Other (carotid artery disease) Pulmonary: COPD CENTRAL NERVOUS SYSTEM: CVA GI: GERD Heme/Onc: No pertinent hx Hepatobiliary: No pertinent hx Psych: Anxiety Musculoskeletal: Osteoarthritis Rheumatologic: No pertinent hx Infectious disease: No pertinent hx ENT: No pertinent hx Renal/: No pertinent hx Endocrine: No pertinent hx Dermatology: No pertinent hx PAST SURGICAL HISTORY Past Surgical History: Cholecystectomy (recent 02/2017), Tubal Ligation, Tonsillectomy, Other (2013 left carotid endarterectomy) SOCIAL HISTORY Smoke: <1 pack per day ALCOHOL: none Drugs: None Lives: with Family CURRENT MEDICATIONS CURRENT MEDICATIONS Current Medications Medications (Trade) Dose Ordered Sig/[facility] Route PRN Reason Start Time Stop Time Status Last Admin Dose Admin Fentanyl Citrate (Fentanyl 2ml Vial) 50 mcg PRN Q15MIN PRN IV PAIN GREATER THAN 3/10 03/25/17 18:45 03/26/17 18:44 03/25/17 19:07 Sodium Chloride 1,000 ml @ 100 mls/hr Q10H IV 03/25/17 18:45 03/25/17 21:17 DC 03/25/17 19:07 Ondansetron HCl (Zofran) 4 mg 1X ONCE IV 03/25/17 18:45 03/25/17 18:51 DC 03/25/17 19:07 Famotidine (Pepcid) 20 mg 1X ONCE IVP 03/25/17 18:45 03/25/17 18:51 DC 03/25/17 19:07 Iohexol (Omnipaque 240 Mg/ml) 50 ml 1X ONCE PO 03/25/17 20:00 03/25/17 20:01 DC 03/25/17 20:26 Iohexol (Omnipaque 300 Mg/ml) 75 ml 1X ONCE IV 03/25/17 20:00 03/25/17 20:01 DC 03/25/17 20:19 Aspirin (Mack Aspirin) 325 mg 1X ONCE PO 03/25/17 21:15 03/25/17 21:16 DC 03/25/17 21:26 Sodium Chloride 1,000 ml @ 100 mls/hr Q10H IV 03/25/17 21:13 03/26/17 21:12 03/26/17 05:51 Gabapentin (Neurontin) 600 mg TID PO 03/25/17 23:55 03/26/17 00:08 Ropinirole HCl (Requip) 1 mg HS PO 03/25/17 23:55 03/26/17 00:08 Trazodone HCl (Desyrel) 150 mg QHS PO 03/25/17 23:55 03/26/17 00:09 ALLERGIES ALLERGIES: Coded Allergies: No Known Drug Allergies (Unverified , 02/16/17) ROS Review of System 14 point ROS evaluated with pertinent positives noted per HPI PHYSICAL EXAM General: Alert, Oriented X3, Cooperative, No acute distress HEENT: Atraumatic, Mucous membr. moist/pink Lungs: Normal air movement, Other (faint basilar crackles) Heart: Regular rate (SR), Normal S1, Normal S2, Other (distant heart slunds) Abdomen: Other (tender RUQ abd) Extremities: No cyanosis, No edema Skin: No breakdown, No significant lesion Neuro: Normal speech, Sensation intact Psych/Mental Status: Mental status NL, Mood NL MUSCULOSKELETAL: Osteoarthritic changes both hands VITALS VITALS Vital Signs Date Time Temp Pulse Resp B/P (MAP) Pulse Ox O2 Delivery O2 Flow Rate FiO2 03/26/17 07:06 97.4 71 19 120/49 (72) 90 Room Air 97.4 03/25/17 23:45 96.0 LABS Lab: Laboratory Tests Test 03/25/17 18:44 03/25/17 19:10 03/26/17 03:15 White Blood Count 11.0 x10^3/uL (4.0-11.0) 11.1 x10^3/uL (4.0-11.0) Red Blood Count 4.22 x10^6/uL (3.50-5.40) 4.04 x10^6/uL (3.50-5.40) Hemoglobin 14.2 g/dL (12.0-15.5) 13.5 g/dL (12.0-15.5) Hematocrit 42.7 % (36.0-47.0) 41.4 % (36.0-47.0) Mean Corpuscular Volume 101 fL (79-100) 103 fL (79-100) Mean Corpuscular Hemoglobin 34 pg (25-35) 34 pg (25-35) Mean Corpuscular Hemoglobin Concent 33 g/dL (31-37) 33 g/dL (31-37) Red Cell Distribution Width 15.5 % (11.5-14.5) 15.9 % (11.5-14.5) Platelet Count 207 x10^3/uL (140-400) 183 x10^3/uL (140-400) Neutrophils (%) (Auto) 62 % (31-73) 61 % (31-73) Lymphocytes (%) (Auto) 22 % (24-48) 24 % (24-48) Monocytes (%) (Auto) 9 % (0-9) 9 % (0-9) Eosinophils (%) (Auto) 6 % (0-3) 6 % (0-3) Basophils (%) (Auto) 1 % (0-3) 1 % (0-3) Neutrophils # (Auto) 6.8 x10^3uL (1.8-7.7) 6.7 x10^3uL (1.8-7.7) Lymphocytes # (Auto) 2.4 x10^3/uL (1.0-4.8) 2.6 x10^3/uL (1.0-4.8) Monocytes # (Auto) 0.9 x10^3/uL (0.0-1.1) 1.0 x10^3/uL (0.0-1.1) Eosinophils # (Auto) 0.7 x10^3/uL (0.0-0.7) 0.7 x10^3/uL (0.0-0.7) Basophils # (Auto) 0.1 x10^3/uL (0.0-0.2) 0.1 x10^3/uL (0.0-0.2) Urine Collection Type Unknown Urine Color Yellow Urine Clarity Clear Urine pH 6.0 Urine Specific [place] 1.010 Urine Protein Negative mg/dL (NEG-TRACE) Urine Glucose (UA) Negative mg/dL (NEG) Urine Ketones (Stick) Negative mg/dL (NEG) Urine Blood Negative (NEG) Urine Nitrite Negative (NEG) Urine Bilirubin Negative (NEG) Urine Urobilinogen Dipstick 0.2 mg/dL (0.2 mg/dL) Urine Leukocyte Esterase Negative (NEG) Urine RBC Rare /HPF (0-2) Urine WBC Rare /HPF (0-4) Urine Squamous Epithelial Cells Mod /LPF Urine Bacteria 0 /HPF (0-FEW) Urine Yeast Present /HPF Sodium Level 143 mmol/L (136-145) 143 mmol/L (136-145) Potassium Level 3.4 mmol/L (3.5-5.1) 3.9 mmol/L (3.5-5.1) Chloride Level 102 mmol/L (98-107) 105 mmol/L (98-107) Carbon Dioxide Level 33 mmol/L (21-32) 30 mmol/L (21-32) Anion Gap 8 (6-14) 8 (6-14) Blood Urea Nitrogen 9 mg/dL (7-20) 9 mg/dL (7-20) Creatinine 0.9 mg/dL (0.6-1.0) 0.9 mg/dL (0.6-1.0) Estimated GFR (Cockcroft-Gault) 66.3 66.3 BUN/Creatinine Ratio 10 (6-20) Glucose Level 118 mg/dL (70-99) 98 mg/dL (70-99) Calcium Level 9.5 mg/dL (8.5-10.1) 8.7 mg/dL (8.5-10.1) Total Bilirubin 0.2 mg/dL (0.2-1.0) Aspartate Amino Transf (AST/SGOT) 11 U/L (15-37) Alanine Aminotransferase (ALT/SGPT) 18 U/L (14-59) Alkaline Phosphatase 48 U/L (46-116) Troponin I Quantitative < 0.017 ng/mL (0.000-0.055) < 0.017 ng/mL (0.000-0.055) Total Protein 7.2 g/dL (6.4-8.2) Albumin 3.5 g/dL (3.4-5.0) Albumin/Globulin Ratio 0.9 (1.0-1.7) Lipase 272 U/L (73-393) ASSESSMENT/PLAN ASSESSMENT/PLAN 1. RUQ abd pain with GB fossa fluid: S/P lap ras 02/2017. General surgery consulted 2. Abnormal EKG: SR with intraventricular conduction delay and with nonspecific mild T wave inversions to precordial leads. Overnight SR/SB lowest in the50s. Troponin series normal, no cardiac symptoms. Likely from strain. 3. HTN: controlled 4. HLP 5. CVA with carotid artery disease: on plavix with past carotid endarterectomy 6. COPD with continued tobaccoism Recommendations 1. Lytes are normal. TTE today. 2. Continue with secondary prevention Problems: JIM ROSENTHAL MD 03/26/17 1612: CARDIAC CONSULT ALLERGIES ALLERGIES: Coded Allergies: No Known Drug Allergies (Unverified , 02/16/17) ASSESSMENT/PLAN ASSESSMENT/PLAN Patient seen and examined. Agree with MEDICAL ACCOUNTANT's assessment and plan. EKG showed precordial T-wave inversions the patient is chest pain-free. Doubt ACS. Check 2-D echo to assess LV function and rule out wall motion abnormalities. Continue workup for right upper quadrant abdominal pain per surgical team. Thank you for your consultation. Problems: NAYA WICK APRN Mar 26, 2017 08:39 JIM ROSENTHAL MD Mar 26, 2017 16:12
[2017-03-26] MEDS ORDERED: rOPINIRole 1 MG TABLET. PO SCH (09:00)
[2017-03-26] MEDS: FENOFIBRATE,MICRONIZED 134 MG CAPSULE PO SCH ×2 (09:00→12:54)
[2017-03-26] MEDS: SPIRONOLACTONE 25 MG TABLET PO SCH ×2 (09:00→12:54)
[2017-03-26] MEDS ORDERED: GABAPENTIN 300 MG CAPSULE. PO SCH (09:00)
[2017-03-26] MEDS: FAMOTIDINE 20 MG TABLET. PO SCH ×2 (09:00→12:54)
[2017-03-26] MEDS: MIRTAZAPINE 15 MG TABLET PO SCH ×2 (09:00→12:54)
[2017-03-26] MEDS: FLUoxetine HCL 20 MG CAPSULE PO SCH ×2 (09:00→12:53)
[2017-03-26 10:33] VITALS: BP 113/74
--- NOTE | 2017-03-26 12:19 | EKG ---
[facility] [address] [place] [address] Test Date: 2017-03-25 Test Time: 19:01:36 Pat Name: MAHESH SHEA Department: Room: Gender: F Security Operations Engineer: : 1965 Requested By: NICHOL SMILEY Order Number: [id number] Reading MD: Measurements Intervals [place] Rate: 57 P: 36 GA: 142 QRS: -3 QRSD: 96 T: 24 QT: 464 QTc: 455 Interpretive Statements SINUS RHYTHM LEFTWARD AXIS INCOMPLETE RIGHT BUNDLE BRANCH BLOCK T ABNORMALITY IN ANTERIOR LEADS RI6.01 Unconfirmed report No previous ECG available for comparison
--- NOTE | 2017-03-26 14:03 | PDOC2 ---
CONSULT Date of Consult Date of Consult DATE: 03/26/17 TIME: 13:59 History of Present Illness Reason for Visit: The patient is a 51 year old female who reported to the ER with abdominal pain. The pain is present on the right side and has been there for the last 7 days. The pain worsened prompting her arrival. The pain is worse with movements, and not affected by eating. The patient had a lap ras on Feb 16. At the time of surgery the patient was found to have a markedly inflamed, porcelain like gallbladder. The surgery was difficult and kendrick seal and surgicell packs were used to assist with hemostasis. She had a drain placed which was removed as an outpt. Past Medical History Cardiovascular: HTN, Hyperlipidemia, Other (carotid artery disease) Pulmonary: COPD CENTRAL NERVOUS SYSTEM: CVA GI: GERD Heme/Onc: No pertinent hx Hepatobiliary: No pertinent hx Psych: Anxiety Musculoskeletal: Osteoarthritis Rheumatologic: No pertinent hx Infectious disease: No pertinent hx ENT: No pertinent hx Renal/: No pertinent hx Endocrine: No pertinent hx Dermatology: No pertinent hx Past Surgical History Past Surgical History: Cholecystectomy (recent 02/2017), Tubal Ligation, Tonsillectomy, Other (2013 left carotid endarterectomy) Social History <1 pack per day ALCOHOL: none Drugs: None Lives: with Family Domestic Violence: Neg Current Problem List Problem List Problems Medical Problems: (1) Abdominal fluid collection Status: Acute (2) Abdominal pain Status: Acute (3) Abnormal EKG Status: Acute (4) COPD (chronic obstructive pulmonary disease) Status: Acute Current Medications Current Medications Current Medications Fentanyl Citrate (Fentanyl 2ml Vial) 50 mcg PRN Q15MIN PRN IV PAIN GREATER THAN 3/10 Last administered on 03/25/17 19:07; Start 03/25/17 at 18:45; Stop 03/26/17 at 18:44 Sodium Chloride 1,000 ml @ 100 mls/hr Q10H IV Last administered on 03/25/17 19:07; Start 03/25/17 at 18:45; Stop 03/25/17 at 21:17; Status DC Ondansetron HCl (Zofran) 4 mg 1X ONCE IV Last administered on 03/25/17 19:07 ; Start 03/25/17 at 18:45; Stop 03/25/17 at 18:51; Status DC Famotidine (Pepcid) 20 mg 1X ONCE IVP Last administered on 03/25/17 19:07; Start 03/25/17 at 18:45; Stop 03/25/17 at 18:51; Status DC Iohexol (Omnipaque 240 Mg/ml) 50 ml 1X ONCE PO Last administered on 20:26; Start 03/25/17 at 20:00; Stop 03/25/17 at 20:01; Status DC Iohexol (Omnipaque 300 Mg/ml) 75 ml 1X ONCE IV Last administered on 20:19; Start 03/25/17 at 20:00; Stop 03/25/17 at 20:01; Status DC Info (Do NOT chart on this entry -- for MONITORING) 1 each PRN DAILY PRN MC SEE COMMENTS; Start 03/25/17 at 20:00; Stop 03/27/17 at 19:59 Aspirin (Mack Aspirin) 325 mg 1X ONCE PO Last administered on 03/25/17 21: 26; Start 03/25/17 at 21:15; Stop 03/25/17 at 21:16; Status DC Ondansetron HCl (Zofran) 4 mg PRN Q8HRS PRN IV NAUSEA/VOMITING; Start at 21:15; Stop 03/26/17 at 21:14 Fentanyl Citrate (Fentanyl 2ml Vial) 50 mcg PRN Q2HR PRN IV PAIN; Start at 21:15; Stop 03/26/17 at 21:14 Sodium Chloride 1,000 ml @ 100 mls/hr Q10H IV Last administered on 03/26/17 05:51; Start 03/25/17 at 21:13; Stop 03/26/17 at 21:12 Acetaminophen (Tylenol) 650 mg PRN Q4HRS PRN PO FEVER; Start 03/25/17 at 21:15 ; Stop 03/26/17 at 21:14 Clopidogrel Bisulfate (Plavix) 75 mg DAILYWBKFT PO Last administered on 12:53; Start 03/26/17 at 08:00 Fluoxetine HCl (PROzac) 20 mg DAILY PO Last administered on 03/26/17 12:53; Start 03/26/17 at 09:00 Mirtazapine (Remeron) 15 mg DAILY PO Last administered on 03/26/17 12:54; Start 03/26/17 at 09:00 Ropinirole HCl (Requip) 1 mg DAILY PO ; Start 03/26/17 at 09:00; Stop at 09:00; Status DC Simvastatin (Zocor) 40 mg HS PO ; Start 03/26/17 at 21:00 Spironolactone (Aldactone) 25 mg DAILY PO Last administered on 03/26/17 12:54 ; Start 03/26/17 at 09:00 Fenofibrate (Lofibra) 134 mg DAILY PO Last administered on 03/26/17 12:54; Start 03/26/17 at 09:00 Gabapentin (Neurontin) 600 mg TID PO ; Start 03/26/17 at 09:00; Stop 03/26/17 at 09:00; Status DC Famotidine (Pepcid) 20 mg DAILY PO Last administered on 03/26/17 12:54; Start 03/26/17 at 09:00 Trazodone HCl (Desyrel) 150 mg QHS PO ; Start 03/26/17 at 21:00; Stop at 21:00; Status DC Gabapentin (Neurontin) 600 mg TID PO Last administered on 03/26/17 12:54; Start 03/25/17 at 23:55 Ropinirole HCl (Requip) 1 mg HS PO Last administered on 03/26/17 00:08; Start 03/25/17 at 23:55 Trazodone HCl (Desyrel) 150 mg QHS PO Last administered on 03/26/17 00:09; Start 03/25/17 at 23:55 Active Scripts Active Trazodone Hcl 100 Mg Tablet 100 Tab PO QHS Plavix (Clopidogrel Bisulfate) 75 Mg Tablet 75 Mg PO [id number] Reported Trazodone Hcl 150 Mg Tablet 1 Tab PO QHS Simvastatin 40 Mg Tablet 40 Mg PO DAILY Fenofibrate (Fenofibrate Nanocrystallized) 145 Mg Tablet 1 Tab PO DAILY Ropinirole Hcl 1 Mg Tablet 1 Mg PO DAILY Spironolactone 25 Mg Tablet 1 Tab PO DAILY Fluoxetine Hcl 20 Mg Capsule 20 Mg PO DAILY Mirtazapine 15 Mg Tablet 15 Mg PO DAILY Gabapentin 300 Mg Capsule 600 Mg PO TID Ranitidine Hcl 150 Mg Capsule 150 Mg PO DAILY Pravastatin Sodium 40 Mg Tablet 40 Mg PO DAILY Allergies Allergies: Coded Allergies: No Known Drug Allergies (Unverified , 02/16/17) ROS General: No: Chills, Night Sweats, Fatigue, Malaise, Appetite, Other PSYCHOLOGICAL ROS: No: Anxiety, Behavioral Disorder, Concentration difficultie , Decreased libido, Depression, Disorientation, Hallucinations, Hostility, Irritablity, Memory difficulties, Mood Swings, Obsessive thoughts, Physical abuse, Sexual abuse, Sleep disturbances, Suicidal ideation, Other Eyes: No Blurry vision, No Decreased vision, No Double vision, No Dry eyes, No Excessive tearing, No Eye Pain, No Itchy Eyes, No Loss of vision, No Photophobia , No Scotomata, No Uses contacts, No Uses glasses, No Other HEENT: No: Heacaches, Visual Changes, Hearing change, Nasal congestion, Nasal discharge, Oral lesions, Sinus pain, Sore Throat, Epistaxis, Sneezing, Snoring, Tinnitus, Vertigo, Vocal changes, Other ALLERGY AND IMMUNOLOGY: No: Hives, Insect Bite Sensitivity, Itchy/Watery Eyes, Nasal Congestion, Post Nasal Drip, Seasonal Allergies, Other Hematological and Lymphatic: No: Bleeding Problems, Blood Clots, Blood Transfusions, Brusing, Night Sweats, Pallor, Swollen Lymph Nodes, Other ENDOCRINE: No: Breast Changes, Galactorrhea, Hair Pattern Changes, Hot Flashes , Malaise/lethargy, Mood Swings, Palpitations, Polydipsia/polyuria, Skin Changes , Temperature Intolerance, Unexpected Weight Changes, Other Respiratory: No: Cough, Hemoptysis, Orthopnea, Pleuritic Pain, Shortness of breath, SOB with excertion, Sputum Changes, Stridor, Tachypnea, Wheezing, Other Cardiovascular: No Chest Pain, No Palpitations, No Orthopnea, No Paroxysmal Noc. Dyspnea, No Edema, No Lt Headedness, No Other Gastrointestinal: Yes Abdominal Pain Genitourinary: No Dysuria, No Frequency, No Incontinence, No Hematuria, No Retention, No Discharge, No Urgency, No Pain, No Flank Pain, No Other, No , No , No , No , No , No , No Musculoskeletal: No Gait Disturbance, No Joint Pain, No Joint Stiffness, No Joint Swelling, No Muscle Pain, No Muscular Weakness, No Pain In:, No Swelling In:, No Other Neurological: No Behavorial Changes, No Bowel/Bladder ControlChng, No Confusion , No Dizziness, No Gait Disturbance, No Headaches, No Impaired Coord/balance, No Memory Loss, No Numbness/Tingling, No Seizures, No Speech Problems, No Tremors, No Visual Changes, No Weakness, No Other Skin: No Dry Skin, No Eczema, No Hair Changes, No Lumps, No Mole Changes, No Mottling, No Nail Changes, No Pruritus, No Rash, No Skin Lesion Changes, No Other, No Acne Physical Exam General: Alert, Oriented X3, Cooperative HEENT: Atraumatic Lungs: Clear to auscultation Heart: Regular rate Abdomen: Soft (tenderness with palpation in RUQ and right lateral abdomen, no guarding) Extremities: No clubbing, No cyanosis Skin: No rashes, No breakdown Neuro: Normal speech Psych/Mental Status: Mental status NL MUSCULOSKELETAL: No joint tenderness, No deformity Vitals VITALS Vital Signs Date Time Temp Pulse Resp B/P (MAP) Pulse Ox O2 Delivery O2 Flow Rate FiO2 03/26/17 10:33 97.7 56 18 113/74 (87) 95 Room Air 97.7 03/26/17 08:00 2.0 Labs Labs Laboratory Tests Test 03/25/17 18:44 03/25/17 19:10 03/26/17 03:15 03/26/17 09:15 White Blood Count 11.0 x10^3/uL (4.0-11.0) 11.1 x10^3/uL (4.0-11.0) Red Blood Count 4.22 x10^6/uL (3.50-5.40) 4.04 x10^6/uL (3.50-5.40) Hemoglobin 14.2 g/dL (12.0-15.5) 13.5 g/dL (12.0-15.5) Hematocrit 42.7 % (36.0-47.0) 41.4 % (36.0-47.0) Mean Corpuscular Volume 101 fL (79-100) 103 fL (79-100) Mean Corpuscular Hemoglobin 34 pg (25-35) 34 pg (25-35) Mean Corpuscular Hemoglobin Concent 33 g/dL (31-37) 33 g/dL (31-37) Red Cell Distribution Width 15.5 % (11.5-14.5) 15.9 % (11.5-14.5) Platelet Count 207 x10^3/uL (140-400) 183 x10^3/uL (140-400) Neutrophils (%) (Auto) 62 % (31-73) 61 % (31-73) Lymphocytes (%) (Auto) 22 % (24-48) 24 % (24-48) Monocytes (%) (Auto) 9 % (0-9) 9 % (0-9) Eosinophils (%) (Auto) 6 % (0-3) 6 % (0-3) Basophils (%) (Auto) 1 % (0-3) 1 % (0-3) Neutrophils # (Auto) 6.8 x10^3uL (1.8-7.7) 6.7 x10^3uL (1.8-7.7) Lymphocytes # (Auto) 2.4 x10^3/uL (1.0-4.8) 2.6 x10^3/uL (1.0-4.8) Monocytes # (Auto) 0.9 x10^3/uL (0.0-1.1) 1.0 x10^3/uL (0.0-1.1) Eosinophils # (Auto) 0.7 x10^3/uL (0.0-0.7) 0.7 x10^3/uL (0.0-0.7) Basophils # (Auto) 0.1 x10^3/uL (0.0-0.2) 0.1 x10^3/uL (0.0-0.2) Urine Collection Type Unknown Urine Color Yellow Urine Clarity Clear Urine pH 6.0 Urine Specific Grubbs 1.010 Urine Protein Negative mg/dL (NEG-TRACE) Urine Glucose (UA) Negative mg/dL (NEG) Urine Ketones (Stick) Negative mg/dL (NEG) Urine Blood Negative (NEG) Urine Nitrite Negative (NEG) Urine Bilirubin Negative (NEG) Urine Urobilinogen Dipstick 0.2 mg/dL (0.2 mg/dL) Urine Leukocyte Esterase Negative (NEG) Urine RBC Rare /HPF (0-2) Urine WBC Rare /HPF (0-4) Urine Squamous Epithelial Cells Mod /LPF Urine Bacteria 0 /HPF (0-FEW) Urine Yeast Present /HPF Sodium Level 143 mmol/L (136-145) 143 mmol/L (136-145) Potassium Level 3.4 mmol/L (3.5-5.1) 3.9 mmol/L (3.5-5.1) Chloride Level 102 mmol/L (98-107) 105 mmol/L (98-107) Carbon Dioxide Level 33 mmol/L (21-32) 30 mmol/L (21-32) Anion Gap 8 (6-14) 8 (6-14) Blood Urea Nitrogen 9 mg/dL (7-20) 9 mg/dL (7-20) Creatinine 0.9 mg/dL (0.6-1.0) 0.9 mg/dL (0.6-1.0) Estimated GFR (Cockcroft-Gault) 66.3 66.3 BUN/Creatinine Ratio 10 (6-20) Glucose Level 118 mg/dL (70-99) 98 mg/dL (70-99) Calcium Level 9.5 mg/dL (8.5-10.1) 8.7 mg/dL (8.5-10.1) Total Bilirubin 0.2 mg/dL (0.2-1.0) Aspartate Amino Transf (AST/SGOT) 11 U/L (15-37) Alanine Aminotransferase (ALT/SGPT) 18 U/L (14-59) Alkaline Phosphatase 48 U/L (46-116) Troponin I Quantitative < 0.017 ng/mL (0.000-0.055) < 0.017 ng/mL (0.000-0.055) < 0.017 ng/mL (0.000-0.055) Total Protein 7.2 g/dL (6.4-8.2) Albumin 3.5 g/dL (3.4-5.0) Albumin/Globulin Ratio 0.9 (1.0-1.7) Lipase 272 U/L (73-393) Laboratory Tests Test 03/25/17 18:44 03/25/17 19:10 03/26/17 03:15 03/26/17 09:15 White Blood Count 11.0 x10^3/uL (4.0-11.0) 11.1 x10^3/uL (4.0-11.0) Red Blood Count 4.22 x10^6/uL (3.50-5.40) 4.04 x10^6/uL (3.50-5.40) Hemoglobin 14.2 g/dL (12.0-15.5) 13.5 g/dL (12.0-15.5) Hematocrit 42.7 % (36.0-47.0) 41.4 % (36.0-47.0) Mean Corpuscular Volume 101 fL (79-100) 103 fL (79-100) Mean Corpuscular Hemoglobin 34 pg (25-35) 34 pg (25-35) Mean Corpuscular Hemoglobin Concent 33 g/dL (31-37) 33 g/dL (31-37) Red Cell Distribution Width 15.5 % (11.5-14.5) 15.9 % (11.5-14.5) Platelet Count 207 x10^3/uL (140-400) 183 x10^3/uL (140-400) Neutrophils (%) (Auto) 62 % (31-73) 61 % (31-73) Lymphocytes (%) (Auto) 22 % (24-48) 24 % (24-48) Monocytes (%) (Auto) 9 % (0-9) 9 % (0-9) Eosinophils (%) (Auto) 6 % (0-3) 6 % (0-3) Basophils (%) (Auto) 1 % (0-3) 1 % (0-3) Neutrophils # (Auto) 6.8 x10^3uL (1.8-7.7) 6.7 x10^3uL (1.8-7.7) Lymphocytes # (Auto) 2.4 x10^3/uL (1.0-4.8) 2.6 x10^3/uL (1.0-4.8) Monocytes # (Auto) 0.9 x10^3/uL (0.0-1.1) 1.0 x10^3/uL (0.0-1.1) Eosinophils # (Auto) 0.7 x10^3/uL (0.0-0.7) 0.7 x10^3/uL (0.0-0.7) Basophils # (Auto) 0.1 x10^3/uL (0.0-0.2) 0.1 x10^3/uL (0.0-0.2) Urine Collection Type Unknown Urine Color Yellow Urine Clarity Clear Urine pH 6.0 Urine Specific Grubbs 1.010 Urine Protein Negative mg/dL (NEG-TRACE) Urine Glucose (UA) Negative mg/dL (NEG) Urine Ketones (Stick) Negative mg/dL (NEG) Urine Blood Negative (NEG) Urine Nitrite Negative (NEG) Urine Bilirubin Negative (NEG) Urine Urobilinogen Dipstick 0.2 mg/dL (0.2 mg/dL) Urine Leukocyte Esterase Negative (NEG) Urine RBC Rare /HPF (0-2) Urine WBC Rare /HPF (0-4) Urine Squamous Epithelial Cells Mod /LPF Urine Bacteria 0 /HPF (0-FEW) Urine Yeast Present /HPF Sodium Level 143 mmol/L (136-145) 143 mmol/L (136-145) Potassium Level 3.4 mmol/L (3.5-5.1) 3.9 mmol/L (3.5-5.1) Chloride Level 102 mmol/L (98-107) 105 mmol/L (98-107) Carbon Dioxide Level 33 mmol/L (21-32) 30 mmol/L (21-32) Anion Gap 8 (6-14) 8 (6-14) Blood Urea Nitrogen 9 mg/dL (7-20) 9 mg/dL (7-20) Creatinine 0.9 mg/dL (0.6-1.0) 0.9 mg/dL (0.6-1.0) Estimated GFR (Cockcroft-Gault) 66.3 66.3 BUN/Creatinine Ratio 10 (6-20) Glucose Level 118 mg/dL (70-99) 98 mg/dL (70-99) Calcium Level 9.5 mg/dL (8.5-10.1) 8.7 mg/dL (8.5-10.1) Total Bilirubin 0.2 mg/dL (0.2-1.0) Aspartate Amino Transf (AST/SGOT) 11 U/L (15-37) Alanine Aminotransferase (ALT/SGPT) 18 U/L (14-59) Alkaline Phosphatase 48 U/L (46-116) Troponin I Quantitative < 0.017 ng/mL (0.000-0.055) < 0.017 ng/mL (0.000-0.055) < 0.017 ng/mL (0.000-0.055) Total Protein 7.2 g/dL (6.4-8.2) Albumin 3.5 g/dL (3.4-5.0) Albumin/Globulin Ratio 0.9 (1.0-1.7) Lipase 272 U/L (73-393) Assessment/Plan Assessment/Plan 51 year old female with R abdominal pain, S/P lap ras Sept . Note CT scan findings, small fluid collection at gallbladder fossa, ?biloma, may just be postoperative in nature (hematoma, surgicel packs etc). Difficult to know if pain at this point related in any way to surgery over a month ago. Will check a HIDA scan. STEFANI RUBY MD Mar 26, 2017 14:03
[2017-03-26 15:00] VITALS: BP 145/70
--- NOTE | 2017-03-26 17:24 | PDOC ---
Provider Note Provider Note H&P dictated # [id number] Suzanna CALIX MD Mar 26, 2017 17:24
--- NOTE | 2017-03-26 18:30 | RAD ---
Hepatobiliary scan 03/26/2017 CLINICAL HISTORY: Right upper quadrant abdominal pain. History of cholecystectomy. TECHNIQUE: After the intravenous administration of 5.0 mCi of Technetium 99m Choletec, imaging of the right upper quadrant abdomen was performed for 60 minutes using the gamma camera. FINDINGS: Comparison is made to the patient's CT scan of the abdomen dated 03/25/2017. Normal uptake, perfusion and excretion of the radionuclide by the liver is seen. There is no evidence of common bile duct obstruction. Activity extends into the duodenum and proximal jejunum at 10 minutes. The gallbladder is not visualized consistent with a cholecystectomy. No abnormal accumulation of radionuclide is seen to suggest evidence of a biloma. IMPRESSION: 1. Post cholecystectomy. No biloma is seen. Electronically signed by: Jhon Dillon MD (03/26/2017 6:26 PM) [facility]
--- NOTE | 2017-03-26 18:35 | HP ---
ADMIT DATE: 03/25/2017 ADMISSION DIAGNOSIS: Abdominal pain. HISTORY OF PRESENT ILLNESS: This is a 51-year-old white female who had severe right-sided abdominal pain and flank pain that got bad enough to present to the Emergency Room. She was seen by Dr. Elizabeth there and evaluated. She has a history of having her gallbladder removed [address] Contreras. It was firmly attached to her liver, which caused some bleeding and required him to place some Gelfoam packing within the space. Her imaging studies showed abnormal area there suggestive of biloma. Because of her pain and uncertainty of what was going on in her right upper quadrant and due to changes in her colon suggesting diverticulitis, she was admitted. Overnight, though her pain has subsided and today she is up eating without any complaint of abdominal pain at this time. She had not had any nausea, vomiting or fever. She has had some increased urinary frequency, but no other bladder symptoms. She has no history of kidney stones. Her EKG was also noted to be abnormal which was another reason to admit her, but she really has not had any typical cardiac symptoms. PAST MEDICAL HISTORY: Asthma, bronchitis, hypertension, CVA, hyperlipidemia, GERD, depression, anxiety, past alcohol use, tobacco use. PAST SURGICAL HISTORY: Includes tonsillectomy, adenoidectomy, left carotid endarterectomy, cholecystectomy, tubal ligation. FAMILY HISTORY: Mother has had a stroke and hypertension and Alzheimer's. SOCIAL HISTORY: Positive for tobacco use and prior alcohol use. ALLERGIES: No known drug allergies. HOME MEDICATIONS: Clopidogrel 75 mg daily with breakfast, fenofibrate 145 mg daily, fluoxetine 20 mg daily, gabapentin 600 mg t.i.d., mirtazapine 15 mg at bedtime, pravastatin 40 mg daily, ranitidine 150 daily, ropinirole 1 mg daily, simvastatin 40 mg daily, spironolactone 25 mg daily, trazodone 100 mg daily. REVIEW OF SYSTEMS: HEENT: Unremarkable. CARDIAC: Negative for chest pain or palpitations. PULMONARY: Negative for cough or wheezing. ABDOMEN: As above. GENITOURINARY: Negative for dysuria. Positive for frequency. MUSCULOSKELETAL: She uses a cane since she had her stroke and has some weakness. NEUROLOGIC: Numbness in her right hand and finger since her stroke in 2013. PSYCHIATRIC: Chronic depression, anxiety without acute flare. SKIN: No rash or lesions. PHYSICAL EXAMINATION: VITAL SIGNS: Stable. Blood pressure is controlled, heart rate was as low as 54. She is on room air oxygen, saturating normally now. GENERAL: She is in no acute distress. HEENT: Shows no facial droop. Conjunctivae are clear. Sclerae are nonicteric. Mucous membranes are moist. NECK: Supple. I did not listen for bruit. HEART: Regular rate and rhythm. LUNGS: Clear to auscultation. ABDOMEN: Soft, nondistended, nontender. There is no tenderness in her right upper quadrant or other parts of her abdomen. No hepatosplenomegaly is palpable. EXTREMITIES: Without clubbing, cyanosis or edema. NEUROLOGIC: Gait is not tested. [employer] strength is not tested. Sensation is not tested. SKIN: Shows normal turgor. PSYCHIATRIC: She has appropriate mood and affect. LABORATORY STUDIES: Show white count of 11.1, MCV is elevated at 103, platelets are normal. Differentials unremarkable. Potassium initially low at 3.4, is now 3.9. Other electrolytes are normal. BUN and creatinine are normal. Glucose is dropped from 118 to 98. Troponins are negative x 3. Lipase is normal. Liver enzymes are normal. Urinalysis is unremarkable, yeast is present, though. IMAGING STUDIES: CT abdomen and pelvis done through the Emergency Room shows her status post cholecystectomy. There is some fluid appearing in the gallbladder fossa, although other considerations are included. There is a colonic diverticulosis with some slight inflammation involving the distal descending colon, but she is not showing any tenderness there. Her uterus/ovary suggests leiomyomata, exophytic versus left ovarian mass. 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 Initial EKG suggested some strain pattern. ASSESSMENT: 1. Right upper quadrant abdominal pain. This could be from her mesenteric or enteric cyst, could be related to her post cholecystectomy state. I have discussed it with Dr. Contreras. He encountered some bleeding from her liver and required some gel packing. It could be changes related to that process. 2. Abnormal EKG. Her cardiac enzymes are normal. Cardiology is following. Echo was ordered. 3. Multiple chronic medical problems including hypertension, hyperlipidemia, depression, anxiety, prior stroke from carotid stenosis required carotid endarterectomy, elevated MCV. PLAN: She is admitted. HIDA scan was ordered. Echo was ordered. She does not appear to be in acute pain at this time. There is no surgical intervention at this point that is required. W Joseph CALIX MD DR: GREYSON/maxine JOB#: [id number] / [id number]
[2017-03-26 19:47] VITALS: BP 131/68
[2017-03-26] MEDS ORDERED: traZODone 50 MG TABLET. PO SCH (21:00)
[2017-03-26] MEDS ORDERED: SIMVASTATIN 40 MG TABLET. PO SCH (21:00)
[2017-03-26 23:54] VITALS: BP 119/78
[2017-03-27 03:41] VITALS: BP 113/61
[2017-03-27 06:55] VITALS: BP 124/75
[2017-03-27] MEDS: SPIRONOLACTONE 25 MG TABLET PO SCH (08:41)
[2017-03-27] MEDS: FENOFIBRATE,MICRONIZED 134 MG CAPSULE PO SCH (08:41)
[2017-03-27] MEDS: CLOPIDOGREL BISULFATE 75 MG TABLET PO SCH (08:41)
[2017-03-27] MEDS: MIRTAZAPINE 15 MG TABLET PO SCH (08:41)
[2017-03-27] MEDS: FLUoxetine HCL 20 MG CAPSULE PO SCH (08:41)
[2017-03-27] MEDS: GABAPENTIN 300 MG CAPSULE. PO SCH (08:41)
[2017-03-27] MEDS: FAMOTIDINE 20 MG TABLET. PO SCH (08:41)
[2017-03-27 11:00] VITALS: BP 121/63
--- NOTE | 2017-03-27 11:05 | PDOC ---
PROGRESS NOTES Subjective Subjective states she is improved, no further pain Objective Objective Vital Signs Date Time Temp Pulse Resp B/P (MAP) Pulse Ox O2 Delivery O2 Flow Rate FiO2 03/27/17 11:00 97.7 60 19 121/63 (82) 93 Nasal Cannula 2.0 97.7 Physical Exam Abdomen: Soft, No tenderness Heart: Regular rate Extremities: No clubbing, No cyanosis General: Alert, Oriented X3, Cooperative HEENT: Atraumatic Lungs: Clear to auscultation Assessment Assessment Problems Medical Problems: (1) Abdominal fluid collection Status: Acute (2) Abdominal pain Status: Acute (3) Abnormal EKG Status: Acute (4) COPD (chronic obstructive pulmonary disease) Status: Acute Plan Plan of Care HIDA normal, no evidence of biloma; suspect CT findings simple postop (hematoma , surgicel packs etc); no surgical recs, ok to discharge Comment Review of Relevant I have reviewed the following items mya (where applicable) has been applied. Labs Laboratory Tests Test 03/25/17 18:44 03/25/17 19:10 03/26/17 03:15 03/26/17 09:15 White Blood Count 11.0 x10^3/uL (4.0-11.0) 11.1 x10^3/uL (4.0-11.0) Red Blood Count 4.22 x10^6/uL (3.50-5.40) 4.04 x10^6/uL (3.50-5.40) Hemoglobin 14.2 g/dL (12.0-15.5) 13.5 g/dL (12.0-15.5) Hematocrit 42.7 % (36.0-47.0) 41.4 % (36.0-47.0) Mean Corpuscular Volume 101 fL (79-100) 103 fL (79-100) Mean Corpuscular Hemoglobin 34 pg (25-35) 34 pg (25-35) Mean Corpuscular Hemoglobin Concent 33 g/dL (31-37) 33 g/dL (31-37) Red Cell Distribution Width 15.5 % (11.5-14.5) 15.9 % (11.5-14.5) Platelet Count 207 x10^3/uL (140-400) 183 x10^3/uL (140-400) Neutrophils (%) (Auto) 62 % (31-73) 61 % (31-73) Lymphocytes (%) (Auto) 22 % (24-48) 24 % (24-48) Monocytes (%) (Auto) 9 % (0-9) 9 % (0-9) Eosinophils (%) (Auto) 6 % (0-3) 6 % (0-3) Basophils (%) (Auto) 1 % (0-3) 1 % (0-3) Neutrophils # (Auto) 6.8 x10^3uL (1.8-7.7) 6.7 x10^3uL (1.8-7.7) Lymphocytes # (Auto) 2.4 x10^3/uL (1.0-4.8) 2.6 x10^3/uL (1.0-4.8) Monocytes # (Auto) 0.9 x10^3/uL (0.0-1.1) 1.0 x10^3/uL (0.0-1.1) Eosinophils # (Auto) 0.7 x10^3/uL (0.0-0.7) 0.7 x10^3/uL (0.0-0.7) Basophils # (Auto) 0.1 x10^3/uL (0.0-0.2) 0.1 x10^3/uL (0.0-0.2) Urine Collection Type Unknown Urine Color Yellow Urine Clarity Clear Urine pH 6.0 Urine Specific [place] 1.010 Urine Protein Negative mg/dL (NEG-TRACE) Urine Glucose (UA) Negative mg/dL (NEG) Urine Ketones (Stick) Negative mg/dL (NEG) Urine Blood Negative (NEG) Urine Nitrite Negative (NEG) Urine Bilirubin Negative (NEG) Urine Urobilinogen Dipstick 0.2 mg/dL (0.2 mg/dL) Urine Leukocyte Esterase Negative (NEG) Urine RBC Rare /HPF (0-2) Urine WBC Rare /HPF (0-4) Urine Squamous Epithelial Cells Mod /LPF Urine Bacteria 0 /HPF (0-FEW) Urine Yeast Present /HPF Sodium Level 143 mmol/L (136-145) 143 mmol/L (136-145) Potassium Level 3.4 mmol/L (3.5-5.1) 3.9 mmol/L (3.5-5.1) Chloride Level 102 mmol/L (98-107) 105 mmol/L (98-107) Carbon Dioxide Level 33 mmol/L (21-32) 30 mmol/L (21-32) Anion Gap 8 (6-14) 8 (6-14) Blood Urea Nitrogen 9 mg/dL (7-20) 9 mg/dL (7-20) Creatinine 0.9 mg/dL (0.6-1.0) 0.9 mg/dL (0.6-1.0) Estimated GFR (Cockcroft-Gault) 66.3 66.3 BUN/Creatinine Ratio 10 (6-20) Glucose Level 118 mg/dL (70-99) 98 mg/dL (70-99) Calcium Level 9.5 mg/dL (8.5-10.1) 8.7 mg/dL (8.5-10.1) Total Bilirubin 0.2 mg/dL (0.2-1.0) Aspartate Amino Transf (AST/SGOT) 11 U/L (15-37) Alanine Aminotransferase (ALT/SGPT) 18 U/L (14-59) Alkaline Phosphatase 48 U/L (46-116) Troponin I Quantitative < 0.017 ng/mL (0.000-0.055) < 0.017 ng/mL (0.000-0.055) < 0.017 ng/mL (0.000-0.055) Total Protein 7.2 g/dL (6.4-8.2) Albumin 3.5 g/dL (3.4-5.0) Albumin/Globulin Ratio 0.9 (1.0-1.7) Lipase 272 U/L (73-393) Medications Current Medications Fentanyl Citrate (Fentanyl 2ml Vial) 50 mcg PRN Q15MIN PRN IV PAIN GREATER THAN 3/10 Last administered on 03/25/17 19:07; Start 03/25/17 at 18:45; Stop 03/26/17 at 18:44; Status DC Sodium Chloride 1,000 ml @ 100 mls/hr Q10H IV Last administered on 03/25/17 19:07; Start 03/25/17 at 18:45; Stop 03/25/17 at 21:17; Status DC Ondansetron HCl (Zofran) 4 mg 1X ONCE IV Last administered on 03/25/17 19:07 ; Start 03/25/17 at 18:45; Stop 03/25/17 at 18:51; Status DC Famotidine (Pepcid) 20 mg 1X ONCE IVP Last administered on 03/25/17 19:07; Start 03/25/17 at 18:45; Stop 03/25/17 at 18:51; Status DC Iohexol (Omnipaque 240 Mg/ml) 50 ml 1X ONCE PO Last administered on 20:26; Start 03/25/17 at 20:00; Stop 03/25/17 at 20:01; Status DC Iohexol (Omnipaque 300 Mg/ml) 75 ml 1X ONCE IV Last administered on 20:19; Start 03/25/17 at 20:00; Stop 03/25/17 at 20:01; Status DC Info (Do NOT chart on this entry -- for MONITORING) 1 each PRN DAILY PRN MC SEE COMMENTS; Start 03/25/17 at 20:00; Stop 03/27/17 at 19:59 Aspirin (Mack Aspirin) 325 mg 1X ONCE PO Last administered on 03/25/17 21: 26; Start 03/25/17 at 21:15; Stop 03/25/17 at 21:16; Status DC Ondansetron HCl (Zofran) 4 mg PRN Q8HRS PRN IV NAUSEA/VOMITING; Start at 21:15; Stop 03/26/17 at 21:14; Status DC Fentanyl Citrate (Fentanyl 2ml Vial) 50 mcg PRN Q2HR PRN IV PAIN; Start at 21:15; Stop 03/26/17 at 21:14; Status DC Sodium Chloride 1,000 ml @ 100 mls/hr Q10H IV Last administered on 03/26/17 17:32; Start 03/25/17 at 21:13; Stop 03/26/17 at 21:12; Status DC Acetaminophen (Tylenol) 650 mg PRN Q4HRS PRN PO FEVER; Start 03/25/17 at 21:15 ; Stop 03/26/17 at 21:14; Status DC Clopidogrel Bisulfate (Plavix) 75 mg DAILYWBKFT PO Last administered on 08:41; Start 03/26/17 at 08:00 Fluoxetine HCl (PROzac) 20 mg DAILY PO Last administered on 03/27/17 08:41; Start 03/26/17 at 09:00 Mirtazapine (Remeron) 15 mg DAILY PO Last administered on 03/27/17 08:41; Start 03/26/17 at 09:00 Ropinirole HCl (Requip) 1 mg DAILY PO ; Start 03/26/17 at 09:00; Stop at 09:00; Status DC Simvastatin (Zocor) 40 mg HS PO Last administered on 03/26/17 20:57; Start 03/26/17 at 21:00 Spironolactone (Aldactone) 25 mg DAILY PO Last administered on 03/27/17 08:41 ; Start 03/26/17 at 09:00 Fenofibrate (Lofibra) 134 mg DAILY PO Last administered on 03/27/17 08:41; Start 03/26/17 at 09:00 Gabapentin (Neurontin) 600 mg TID PO ; Start 03/26/17 at 09:00; Stop 03/26/17 at 09:00; Status DC Famotidine (Pepcid) 20 mg DAILY PO Last administered on 03/27/17 08:41; Start 03/26/17 at 09:00 Trazodone HCl (Desyrel) 150 mg QHS PO ; Start 03/26/17 at 21:00; Stop at 21:00; Status DC Gabapentin (Neurontin) 600 mg TID PO Last administered on 03/27/17 08:41; Start 03/25/17 at 23:55 Ropinirole HCl (Requip) 1 mg HS PO Last administered on 03/26/17 20:57; Start 03/25/17 at 23:55 Trazodone HCl (Desyrel) 150 mg QHS PO Last administered on 03/26/17 20:57; Start 03/25/17 at 23:55 Active Scripts Active Trazodone Hcl 100 Mg Tablet 100 Tab PO QHS Plavix (Clopidogrel Bisulfate) 75 Mg Tablet 75 Mg PO DAILYWBKFT Reported Trazodone Hcl 150 Mg Tablet 1 Tab PO QHS Simvastatin 40 Mg Tablet 40 Mg PO DAILY Fenofibrate (Fenofibrate Nanocrystallized) 145 Mg Tablet 1 Tab PO DAILY Ropinirole Hcl 1 Mg Tablet 1 Mg PO DAILY Spironolactone 25 Mg Tablet 1 Tab PO DAILY Fluoxetine Hcl 20 Mg Capsule 20 Mg PO DAILY Mirtazapine 15 Mg Tablet 15 Mg PO DAILY Gabapentin 300 Mg Capsule 600 Mg PO TID Ranitidine Hcl 150 Mg Capsule 150 Mg PO DAILY Pravastatin Sodium 40 Mg Tablet 40 Mg PO DAILY Vitals/I & O Vital Sign - Last 24 Hours 03/26/17 03/26/17 03/26/17 03/26/17 15:00 19:47 20:00 23:54 Temp 97.7 98.1 98.1 97.7 98.1 98.1 Pulse 58 55 66 Resp 18 18 B/P (MAP) 145/70 (95) 131/68 (89) 119/78 (92) Pulse Ox 98 95 97 O2 Delivery Room Air Room Air Nasal Cannula Nasal Cannula O2 Flow Rate 2.0 2.0 03/27/17 03/27/17 03/27/17 03/27/17 03:41 06:55 08:00 11:00 Temp 98.2 98.2 97.7 98.2 98.2 97.7 Pulse 64 64 60 Resp 18 19 B/P (MAP) 113/61 (78) 124/75 (91) 121/63 (82) Pulse Ox 91 90 93 O2 Delivery Nasal Cannula Nasal Cannula Nasal Cannula Nasal Cannula O2 Flow Rate 2.0 2.0 2.0 2.0 STEFANI RUBY MD Mar 27, 2017 11:05
--- NOTE | 2017-03-27 11:52 | PDOC3 ---
Discharge Summary [facility] Date of Admission: Mar 25, 2017 Discharge Date: Mar 27, 2017 Admitting Diagnosis 1. RUQ colicky abdominal pain with abnormal fluid collection suggesting a biloma with hx of recent cholecystectomy 2. abnormal EKG in pt with hx of carotid stenosis, atherosclerosis and prior CVA Problems: Final Diagnosis Problems Medical Problems: (1) Abdominal fluid collection Status: Acute (2) Abdominal pain Status: Acute (3) Abnormal EKG Status: Acute (4) COPD (chronic obstructive pulmonary disease) Status: Acute CONSULTS surgery - Dr. Contreras. cardiology - Dr. Landers Procedures none Brief Hospital Course Ms. Aponte is a 51 old who presented with colicky acute RUQ pain after having her gallbladder removed 3 weeks ago. She had a difficult surgery with bleeding from her liver which required placement of gel packs. 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 In fact she was pain free after admission and is eating well and has a benign exam. She also had a normal HIDA scan. Labs were unremarkable. She is discharged home to continue her routine meds Patient History: FH: CVA (cerebrovascular accident) 32 MOTHER Family history: Alzheimer's disease (situation) 32 MOTHER, Onset:60 years & older Family history: Hypertension (situation) 32 MOTHER, Onset:40's - 50 No Family History of: Cancer confirmed (situation) Family history: Allergy Family history: Angina (situation) Family history: Asthma Family history: Autoimmune disease (situation) Family history: Blood disorder (situation) Family history: Breast disease (situation) Family history: Cardiomyopathy (situation) Family history: Cardiovascular disease (situation) Family history: Crohn's disease (situation) Family history: Depression (situation) Family history: Diabetes mellitus (situation) Family history: Epilepsy (situation) Family history: Gallbladder disease (situation) Family history: Gastrointestinal disease (situation) Family history: Hemophilia (situation) Family history: Obesity (situation) Family history: Schizophrenia (situation) Family history: Sickle cell trait (situation) Family history: Suicide (situation) Family history: neoplasm - trachea/bronchus/lung (situation) Family history: neoplasm - urinary organ (situation) Family history: neoplasm of skin (situation) Malignant hyperthermia Sleep apnea Problems: CONDITION AT DISCHARGE: Improved, Stable Diet low cholesterol, low fat Scheduled Clopidogrel Bisulfate (Plavix), 75 MG PO DAILYWBKFT Fenofibrate Nanocrystallized (Fenofibrate), 1 TAB PO DAILY, (Reported) Fluoxetine Hcl (Fluoxetine Hcl), 20 MG PO DAILY, (Reported) Gabapentin (Gabapentin), 600 MG PO TID, (Reported) Mirtazapine (Mirtazapine), 15 MG PO DAILY, (Reported) Pravastatin Sodium (Pravastatin Sodium), 40 MG PO DAILY, (Reported) Ranitidine Hcl (Ranitidine Hcl), 150 MG PO DAILY, (Reported) Ropinirole Hcl (Ropinirole Hcl), 1 MG PO DAILY, (Reported) Simvastatin (Simvastatin), 40 MG PO DAILY, (Reported) Spironolactone (Spironolactone), 1 TAB PO DAILY, (Reported) Trazodone Hcl (Trazodone Hcl), 100 TAB PO QHS Trazodone Hcl (Trazodone Hcl), 1 TAB PO QHS, (Reported) Follow Up 1-2 weeks Suzanna CALIX MD Mar 27, 2017 11:52
--- NOTE | 2017-03-27 14:00 | CARD ---
APPROVED REPORT EXAM: Two-dimensional and M-mode echocardiogram with Doppler and color Doppler. Other Information Quality : Fair INDICATION Abnormal ECG 2D DIMENSIONS RVDd2.6 (2.9-3.5cm)Left Atrium(2D)3.1 (1.6-4.0cm) IVSd1.1 (0.7-1.1cm)Aortic Root(2D)3.1 (2.0-3.7cm) LVDd4.6 (3.9-5.9cm)LVOT Diameter2.3 (1.8-2.4cm) PWd1.2 (0.7-1.1cm)FS (%) 27.5 % LVEF(%)55.0 (>50%) LEFT VENTRICLE The left ventricle is normal size. There is mild concentric left ventricular hypertrophy. The left ve ntricular systolic function is normal. The Ejection Fraction is 55-60%. There is normal LV segmental wall motion. The left ventricular diastolic function and filling is normal for age. RIGHT VENTRICLE The right ventricle is normal size. The right ventricular systolic function is normal. ATRIA The left atrium size is normal. The right atrium size is normal. The interatrial septum is intact wit h no evidence for an atrial septal defect or patent foramen ovale as noted on 2-D or Doppler imaging. AORTIC VALVE The aortic valve is not well visualized but appears to be functioning normally by Doppler interrogati on. Doppler and Color Flow revealed no significant aortic regurgitation. There is no significant aort ic valvular stenosis. MITRAL VALVE The mitral valve is normal in structure and function. There is no evidence of mitral valve prolapse. There is no mitral valve stenosis. Doppler and Color Flow revealed no mitral valve regurgitation note d. TRICUSPID VALVE The tricuspid valve is normal in structure and function. Doppler and Color Flow revealed no tricuspid valve regurgitation noted. There is no tricuspid valve stenosis. PULMONIC VALVE The pulmonary valve is normal in structure and function. Doppler and Color Flow revealed no pulmonic valvular regurgitation. There is no pulmonic valvular stenosis. GREAT VESSELS The aortic root is normal in size. The ascending aorta is not well seen. The IVC is normal in size an d collapses >50% with inspiration. PERICARDIAL EFFUSION There is no evidence of significant pericardial effusion. Critical Notification Critical Value: No <Conclusion> The left ventricular systolic function is normal. The Ejection Fraction is 55-60%. There is normal LV segmental wall motion. There is no evidence of significant pericardial effusion.
== END 2017-03-27 12:20 | disposition home or self-care (01) | DRG 394 ==
LOC: ER 18:21 → 6 SOUTH 21:14
PROVIDERS: ADMIT Family Medicine; ATTEND Family Medicine
DX: K91.89 Other postprocedural complications and disorders of digestive system (principal); R18.8 Other ascites; E78.5 Hyperlipidemia, unspecified; F17.210 Nicotine dependence, cigarettes, uncomplicated; I10 Essential (primary) hypertension; J44.9 Chronic obstructive pulmonary disease, unspecified; K21.9 Gastro-esophageal reflux disease without esophagitis; K57.30 Diverticulosis of large intestine without perforation or abscess without bleeding; Z81.8 Family history of other mental and behavioral disorders; Z82.0 Family history of epilepsy and other diseases of the nervous system; Z82.3 Family history of stroke; Z82.49 Family history of ischemic heart disease and other diseases of the circulatory system; Z82.5 Family history of asthma and other chronic lower respiratory diseases; Z83.3 Family history of diabetes mellitus; Z86.73 Personal history of transient ischemic attack (TIA), and cerebral infarction without residual deficits; F32.9 Major depressive disorder, single episode, unspecified; F41.9 Anxiety disorder, unspecified; M19.90 Unspecified osteoarthritis, unspecified site; Z90.49 Acquired absence of other specified parts of digestive tract; Z98.51 Tubal ligation status
CPT/HCPCS: 36415; 74177; 78226; 80048; 80053; 81001; 83690; 84484; 85025; 93005; 93306; 96361; 96374; 96375; A9537; J2405; J3010; J7030; Q9966; Q9967; S0028; 99285-25

== ENCOUNTER → 2017-08-01 | Outpatient (CLI) | payer OTHER | END | disposition home or self-care (01) | LOC: US 07:07 | DX: R16.0 Hepatomegaly, not elsewhere classified (principal); Z90.49 Acquired absence of other specified parts of digestive tract | CPT/HCPCS: 76700 ==

== ENCOUNTER 2017-10-28 17:42 | Emergency (ER) | payer OTHER ==
[2017-10-28] MEDS: HYDROcodone/APAP 5/325MG 1 TAB TABLET PO (18:12)
[2017-10-28] MEDS: diazePAM 5 MG TABLET PO (18:12)
== END 2017-10-28 18:17 | disposition home or self-care (01) ==
LOC: ER 18:17
DX: S16.1XXA Strain of muscle, fascia and tendon at neck level, initial encounter (principal); J45.909 Unspecified asthma, uncomplicated; I10 Essential (primary) hypertension; Z86.73 Personal history of transient ischemic attack (TIA), and cerebral infarction without residual deficits; Z90.49 Acquired absence of other specified parts of digestive tract; X58.XXXA Exposure to other specified factors, initial encounter; Y93.89 Activity, other specified; Y92.89 Other specified places as the place of occurrence of the external cause; Y99.8 Other external cause status
CPT/HCPCS: 99283

== ENCOUNTER 2018-01-28 13:08 | Emergency (ER) | payer OTHER ==
[~2018-01-28] VITALS: Ht 154.9 cm; Wt 70.8 kg
[~2018-01-28 13:08] MED LIST changes: +CYCL5TAB PO; -FENO145T2 PO; +FENO145T30 PO; +SIMV40TA3 PO; -SPIR25TA3 PO; +SPIR25TA5 PO; +TRAZ-85 PO; +TRAZ-86 PO; -TRAZ100T12 PO; +TRAZ150T49 PO; -TRAZ50TA15 PO
[2018-01-28 13:29] VITALS: BP 139/62
[2018-01-28] MEDS ORDERED: ALBUTEROL SULFATE 2.5 MG/3 ML NEBU. NEB ONE (13:45)
--- NOTE | 2018-01-28 14:21 | RAD ---
PA and lateral chest radiograph. History: Cough, shortness of air, congestion. Comparison: February 17, 2017. Findings: Cardiomediastinal silhouette is within normal limits for size. Bilateral lung cooper appear clear without evidence of infiltrate, effusion, or pneumothorax. Impression: 1. No acute cardiopulmonary process. Electronically signed by: Bradley Sanon MD (01/28/2018 2:18 PM) [facility] [place]
[2018-01-28] MEDS ORDERED: BENZ100C PO (14:52)
--- NOTE | 2018-01-28 14:52 | PHYS DOC ---
Past Medical History Past Medical History: Asthma, Bronchitis, COPD, CVA, Hypertension Past Surgical History: Cholecystectomy, Other Additional Past Surgical Histo: endarectomy Alcohol Use: None Drug Use: None Adult General Chief Complaint Chief Complaint: COUGH HPI HPI Patient is a 52 year old male who presents to the emergency Department today with complaints of a cough, nasal congestion, runny nose, and sore throat for the last 3 days. She reports a history of COPD, asthma, and states she is smoker. Patient denies any nausea, vomiting, diarrhea, abdominal pain, decreased appetite, ear pain or fever. Currently she rates her discomfort as 8 out of 10 on the pain scale. States that she does feel short of breath with her cough. Review of Systems Review of Systems Constitutional: Denies fever or chills [] HENT: Reports nasal congestion, runny nose, and sore throat for the last 3 days Respiratory: Reports dry cough with intermittent shortness of breath [] Cardiovascular: Denies chest pain GI: Denies abdominal pain, nausea, vomiting, or diarrhea [] Integument: Denies rash or skin lesions [] Neurologic: Denies headache Current Medications Current Medications Current Medications Medications (Trade) Dose Ordered Sig/Luisana Start Time Stop Time Status Last Admin Dose Admin Albuterol Sulfate (Ventolin Neb Soln) 2.5 mg 1X ONCE 01/28/18 13:45 01/28/18 13:46 DC 01/28/18 13:49 2.5 MG Allergies Allergies Allergies Coded Allergies Type Severity Reaction Last Updated Verified No Known Drug Allergies 02/16/17 No Physical Exam Physical Exam Constitutional: Well developed, well nourished, no acute distress, non-toxic appearance, obese [] HENT: Normocephalic, atraumatic, bilateral external ears normal, bilateral tms normal, oropharynx moist, no oral exudates, nose normal. [] Eyes: PERRLA, conjunctiva normal, no discharge. [] Neck: Normal range of motion, no tenderness, supple, no stridor. [] Cardiovascular:Heart rate regular rhythm, no murmur [] Lungs & Thorax: Bilateral breath sounds coarse and diminished in bases bilat Skin: Warm, dry, no erythema, no rash. [] Extremities: No tenderness, no cyanosis,, ROM intact, no edema. [] Neurologic: Alert and oriented X 3, normal motor function, no focal deficits noted. [] Psychologic: Affect normal, judgement normal, mood normal. [] Current Patient Data Vital Signs Vital Signs Date Time Temp Pulse Resp B/P (MAP) Pulse Ox O2 Delivery O2 Flow Rate FiO2 01/28/18 13:50 Room Air 01/28/18 13:29 98.5 64 22 139/62 (87) 94 98.5 EKG EKG [] Radiology/Procedures Radiology/Procedures IMAGING REPORT Signed PATIENT: MAHESH SHEA ACCOUNT: [id number] : 1965 LOCATION: ER AGE: 52 SEX: F EXAM STATUS: REG ER ORD. PHYSICIAN: DAMIAN SAPP APRN REASON: cough, soa,congestion. PROCEDURE: CHEST PA & LATERAL PA and lateral chest radiograph. History: Cough, shortness of air, congestion. Comparison: February 17, 2017. Findings: Cardiomediastinal silhouette is within normal limits for size. Bilateral lung cooper appear clear without evidence of infiltrate, effusion, or pneumothorax. Impression: 1. No acute cardiopulmonary process. Electronically signed by: Bradley Hickman MD (01/28/2018 2:18 PM) [facility] [place] and SIGNED BY: BRADLEY HICKMAN MD DATE: 01/28/18 1416 [] Course & Med Decision Making Course & Med Decision Making Pertinent Labs and Imaging studies reviewed. (See chart for details) Patient is a 52-year-old female who presented to the emergency room today with complaints of a cough, nasal congestion, and runny nose with a sore throat for the last 3 days. VSS, patient's lung sounds improved following the breathing treatment in the emergency room. Reported feeling much better. Chest x-ray was negative for any acute pulmonary process. Patient was advised to use her albuterol inhaler every 4 hours as needed for cough and wheezing. Prescription for Tessalon Perles was written to help reduce the coughing.Patient verbalized an understanding of home care, medications, follow-up, and return to ED instructions and was in agreement with the plan of care. [] Dragon Disclaimer Dragon Disclaimer This electronic medical record was generated, in whole or in part, using a voice recognition dictation system. Departure Departure Impression: Primary Impression: Cough in adult Disposition: 01 HOME, SELF-CARE Condition: IMPROVED Referrals: HERNANDO BOWIE MD (PCP) Patient Instructions: Cough, Adult, [id number] Additional Instructions: Use your albuterol inhaler 2 puffs, every 4 hours did for coughing and shortness of breath. Fill the prescription and use as directed as needed for coughing. Follow-up with your primary care doctor in 1-2 days. Return to the ER if her symptoms worsen. Scripts Benzonatate (TESSALON PERLE) 100 Mg Capsule 1 CAP PO TID PRN for COUGH, #21 CAP 0 Refills Prov: DAMIAN SAPP OPERATING COST CLERK 01/28/18 DAMIAN SAPP OPERATING COST CLERK Jan 28, 2018 14:52
== END 2018-01-28 15:09 | disposition home or self-care (01) ==
LOC: ER 13:08
DX: R05 Cough (principal); R09.81 Nasal congestion; J02.9 Acute pharyngitis, unspecified; R09.89 Other specified symptoms and signs involving the circulatory and respiratory systems; J44.9 Chronic obstructive pulmonary disease, unspecified; I10 Essential (primary) hypertension; Z86.73 Personal history of transient ischemic attack (TIA), and cerebral infarction without residual deficits; F17.200 Nicotine dependence, unspecified, uncomplicated
CPT/HCPCS: 71046; 94640; 99284; J7613

== ENCOUNTER → 2018-03-17 | Outpatient (CLI) | payer OTHER ==
[~2018-03-17] MED LIST changes: +BENZ100C PO
--- NOTE | 2018-03-17 12:03 | RAD ---
CT CHEST WO CONTRAST Indication: COUGH, NO PRIORS Exposure: One or more of the following individualized dose reduction techniques were utilized for this examination: 1. Automated exposure control 2. Adjustment of the mA and/or kV according to patient size 3. Use of iterative reconstruction technique. Comparison: None are available. Contrast: None FINDINGS: Vascular structures: Limited exam without contrast. Calcified, no evidence of thoracic aortic aneurysm. Lymph nodes:No significant enlargement Thyroid gland:Visualized aspect is unremarkable. Heart: No significant pericadial effusion. Esophagus: Unremarkable Pleural spaces: No significant effusion Lungs: There are mild groundglass infiltrates in the right middle lobe and anterior right upper lobe. There is a slight nodular component is some of these opacities. Milder patchy groundglass opacities in the right lower lobe and in the left lung. No dense airspace consolidation. Numerous small noncalcified nodules identified throughout both lungs, measuring 4 mm or less. Trachea and central airways: Patent Spine: Mild degenerative change. Bones: No destructive process Upper abdomen: Slices obtained through the upper most abdomen are limited by the noncontrast technique. No obvious acute findings. Impression: 1. Mild groundglass infiltrates, greatest in the right middle lobe and anterior right upper lobe, most likely due to infectious or inflammatory etiology. There is a slight nodular component is some of these opacities, however, therefore recommend follow-up CT chest to document that these findings result. 2. In addition, there are numerous small bilateral pulmonary nodules measuring 4 mm or less. Electronically signed by: Bradley Carreno MD (03/17/2018 12:00 PM) [id number]
== END | disposition home or self-care (01) ==
LOC: CT 08:43
PROVIDERS: ATTEND Internal Medicine Pulmonary Disease
DX: R91.8 Other nonspecific abnormal finding of lung field (principal)
CPT/HCPCS: 71250

== ENCOUNTER → 2018-07-07 | Outpatient (CLI) | payer OTHER ==
[~2018-07-07] MED LIST changes: -GABA-586 PO; +GABA300C18 PO; +HYDR-3164 PO; -HYDR-971 PO
--- NOTE | 2018-07-07 09:33 | RAD ---
CT chest without contrast dated 07/07/2018. Comparison made to 03/17/2018. CLINICAL INDICATION: Follow-up lung nodule. TECHNIQUE: Contiguous axial imaging of the chest performed without the administration of intravenous contrast. One or more of the following individualized dose reduction techniques were utilized for this examination: 1. Automated exposure control 2. Adjustment of the mA and/or kV according to patient size 3. Use of iterative reconstruction technique. FINDINGS: Heart size within normal limits. No pericardial effusion. No mediastinal, hilar or axillary lymphadenopathy. Prominent pericardial recess. Borderline enlarged right paratracheal lymph node measures about 7 mm short axis. Thyroid gland unremarkable. Central airways are patent. There is patchy groundglass opacity throughout both lungs, increased in the left upper lobe and right upper lobe but somewhat improved in the right middle lobe. Patchy increased density at the right base is slightly increased. No consolidation or pleural effusion. There are linear bands of increased density in the right lower lobe, right middle lobe and lingula, likely related to scar or atelectasis, unchanged. Previously described small noncalcified nodules in the lateral aspect of the right upper lobe have resolved. There is a small noncalcified subpleural nodule in the left upper lobe laterally on image 27 that measures 5 mm, unchanged. There is also a vague groundglass nodule in the anterior left upper lobe on image 24 that measures 6 mm, unchanged. Small subpleural nodules in the right upper lobe previously noted have resolved. There are also some subpleural densities at the left base that are unchanged. Limited images of the upper abdomen unremarkable. Gallbladder surgically absent. No significant bony abnormality. Multilevel spondylosis. IMPRESSION: 1. Patchy areas of groundglass opacity throughout both lungs, some of which are new from prior exam while others have improved. This is most likely inflammatory. Consider chronic bronchial inflammatory process. 2. There are multiple small subpleural nodules throughout both lungs, some of which have resolved while others are unchanged. Continued follow-up imaging to ensure stability. Electronically signed by: Bradley Shaikh MD (07/07/2018 9:29 AM) [id number]
== END | disposition home or self-care (01) ==
LOC: CT 08:41
PROVIDERS: ATTEND Internal Medicine Pulmonary Disease
DX: R91.8 Other nonspecific abnormal finding of lung field (principal); Z90.49 Acquired absence of other specified parts of digestive tract
CPT/HCPCS: 71250

== ENCOUNTER → 2018-09-04 | Outpatient (CLI) | payer OTHER ==
[~2018-09-04] MED LIST changes: +TRAZ-118 PO; -TRAZ-85 PO
--- NOTE | 2018-09-04 14:06 | RAD ---
DATE: 09/04/2018 EXAM: DIGITAL SCREEN BILAT W/CAD HISTORY: Routine screening COMPARISON: 09/19/2015 This study was interpreted with the benefit of Computerized Aided Detection (CAD). Breast Density: SCATTERED The breast parenchyma shows scattered fibroglandular densities. Breast parenchyma level B. FINDINGS: No new or enlarging breast densities are seen. Minimal benign type calcification is present. IMPRESSION: Stable mammograms without evidence of malignancy. BI-RADS CATEGORY: 2 BENIGN FINDING(S) RECOMMENDED FOLLOW-UP: 12M 12 MONTH FOLLOW-UP PQRS compliance statement: Patient information was entered into a reminder system with a target due date for the next mammogram. Mammography is a sensitive method for finding small breast cancers, but it does not detect them all and is not a substitute for careful clinical examination. A negative mammogram does not negate a clinically suspicious finding and should not result in delay in biopsying a clinically suspicious abnormality. "Our facility is accredited by the [employer] Mammography [employer]."
== END | disposition home or self-care (01) ==
LOC: MAMMO 13:32
PROVIDERS: ATTEND Family Medicine
DX: Z12.31 Encounter for screening mammogram for malignant neoplasm of breast (principal); R92.8 Other abnormal and inconclusive findings on diagnostic imaging of breast
CPT/HCPCS: 77067

== ENCOUNTER → 2018-10-27 | Day surgery (SDC) | payer OTHER ==
[~2018-10-27] MED LIST changes: +IV RINGERS,LACTATED 1000ML 1,000 ML IV SCH; +PROPOFOL 40 ML IV ONE
[2018-10-27 09:41] VITALS: BP 123/59
== END ==
LOC: SURG 07:49
PROVIDERS: ATTEND Internal Medicine Gastroenterology
DX: Z12.11 Encounter for screening for malignant neoplasm of colon (principal); K57.30 Diverticulosis of large intestine without perforation or abscess without bleeding; K64.0 First degree hemorrhoids; F41.9 Anxiety disorder, unspecified; J43.9 Emphysema, unspecified; K21.9 Gastro-esophageal reflux disease without esophagitis; E78.00 Pure hypercholesterolemia, unspecified; Z86.73 Personal history of transient ischemic attack (TIA), and cerebral infarction without residual deficits; Z90.49 Acquired absence of other specified parts of digestive tract; Z98.890 Other specified postprocedural states
CPT/HCPCS: 45378; J2704

== ENCOUNTER → 2019-04-25 | Outpatient (CLI) | payer OTHER ==
[2018-10-27 09:41] VITALS: BP 123/59
[~2019-04-25] MED LIST changes: -IV RINGERS,LACTATED 1000ML 1,000 ML IV SCH; -PROPOFOL 40 ML IV ONE; +SIMV40TA18 PO; -SIMV40TA3 PO
--- NOTE | 2019-04-25 12:54 | RAD ---
Bilateral lower extremity venous duplex study 04/25/2019 12:30 PM Clinical History: Bilateral calf swelling Technique: Using a combination of real time ultrasound imaging and color-flow and pulse Doppler imaging techniques along with graded compression and augmentation, duplex evaluation of the deep venous system of the both lower extremities was performed. Multiple images were obtained. Findings: There is no sonographic evidence of deep venous thrombosis involving the visualized deep venous structures of either lower extremity. Impression: No evidence of deep venous thrombosis involving either lower extremity Electronically signed by: Rodolfo Dooley MD (04/25/2019 12:51 PM) [facility]
== END | disposition home or self-care (01) ==
LOC: US 11:51
PROVIDERS: ATTEND Nurse Practitioner Gerontology
DX: M79.89 Other specified soft tissue disorders (principal)
CPT/HCPCS: 93970

== ENCOUNTER 2019-06-10 17:35 | Emergency (ER) | payer OTHER ==
[~2019-06-10] VITALS: Ht 154.9 cm; Wt 83.9 kg
[~2019-06-10 17:35] MED LIST changes: +FENO145T3 PO; -FENO145T30 PO; +FLUO20CA19 PO; -FLUO20CA8 PO; +TRAZ-123 PO; -TRAZ-86 PO
[2019-06-10 17:45] VITALS: BP 128/60
--- NOTE | 2019-06-10 18:08 | PHYS DOC ---
Past Medical History Past Medical History: Asthma, Bronchitis, COPD, CVA, Hypertension Past Surgical History: Cholecystectomy, Other Additional Past Surgical Histo: endarectomy Alcohol Use: None Drug Use: None Adult General Chief Complaint Chief Complaint: Congestion HPI HPI Patient is a 53 year old female who presents with cough, runny nose been ongoing for 3 days. The patient denies any fevers. The patient rates her pain 0 out of 10 in severity. The patient does have a history of COPD. Review of Systems Review of Systems Constitutional: Denies fever or chills [] Eyes: Denies change in visual acuity, redness, or eye pain [] HENT: Reports nasal congestion but denies sore throat [] Respiratory: Reports cough but denies shortness of breath [] Cardiovascular: No additional information not addressed in HPI [] GI: Denies abdominal pain, nausea, vomiting, bloody stools or diarrhea [] : Denies dysuria or hematuria [] Musculoskeletal: Denies back pain or joint pain [] Integument: Denies rash or skin lesions [] Neurologic: Denies headache, focal weakness or sensory changes [] Endocrine: Denies polyuria or polydipsia [] Complete systems were reviewed and found to be within normal limits, except as documented in this note. Current Medications Current Medications Current Medications Medications (Trade) Dose Ordered Sig/Luisana Start Time Stop Time Status Last Admin Dose Admin Albuterol/ Ipratropium (Duoneb) 3 ml 1X ONCE 06/10/19 18:15 06/10/19 18:16 DC 06/10/19 18:13 3 ML Methylprednisolone Sodium Succinate (SOLU-Medrol 125MG VIAL) 62.5 mg 1X STAT 06/10/19 18:04 06/10/19 18:07 DC 06/10/19 18:12 62.5 MG Allergies Allergies Allergies Coded Allergies Type Severity Reaction Last Updated Verified No Known Drug Allergies 10/27/18 No Physical Exam Physical Exam Constitutional: Well developed, well nourished, no acute distress, non-toxic appearance. [] HENT: Normocephalic, atraumatic, bilateral external ears normal, oropharynx moist, no oral exudates, nose normal. [] Eyes: PERRLA, EOMI, conjunctiva normal, no discharge. [] Neck: Normal range of motion, no tenderness, supple, no stridor. [] Cardiovascular:Heart rate regular rhythm, no murmur [] Lungs & Thorax: Bilateral breath sounds have scattered rhonchi and wheezing. Skin: Warm, dry, no erythema, no rash. [] Neurologic: Alert and oriented X 3, normal motor function, normal sensory function, no focal deficits noted. [] Psychologic: Affect normal, judgement normal, mood normal. [] Current Patient Data Vital Signs Vital Signs Date Time Temp Pulse Resp B/P (MAP) Pulse Ox O2 Delivery O2 Flow Rate FiO2 06/10/19 18:16 96 Nasal Cannula 2.0 06/10/19 17:45 98.3 85 12 128/60 (82) 98.3 Lab Values Laboratory Tests Test 06/10/19 18:39 Glucose (Fingerstick) 98 mg/dL (70-99) EKG EKG [] Radiology/Procedures Radiology/Procedures [] Course & Med Decision Making Course & Med Decision Making Pertinent Labs and Imaging studies reviewed. (See chart for details) Will give Breathing treatment, steroids, get POC GLUCOSE, and chest x-ray. Chest x-ray shows pneumonia. Will place on Doxycycline. Will also put on course of Prednisone. Patient feels improved after breathing treatment. Blood sugar was 98. Dragon Disclaimer Dragon Disclaimer This electronic medical record was generated, in whole or in part, using a voice recognition dictation system. Departure Departure Impression: Primary Impression: Pneumonia Additional Impression: COPD with exacerbation Disposition: 01 HOME, SELF-CARE Condition: STABLE Referrals: HERNANDO BOWIE MD (PCP) Patient Instructions: Pneumonia, Adult Additional Instructions: Thank you for visiting [facility]. We appreciate you trusting us with your care. If any additional problems come up don't hesitate to return to visit us. Please follow up with your primary care provider so they can plan additional care if needed and know about the problem that you had. If symptoms worsen come back to the Emergency Department. Any concerning symptoms that start such as chest pain, shortness of air, weakness or numbness on one side of the body, running high fevers or any other concerning symptoms return to the ER. Please be aware that diabetes can cause your sugars to fluctuate while you are sick. This can cause additional issues. Please check your sugars often to ensure they are staying in a safe range and if you are on insulin please take as instructed by your primary care doctor. If you have any questions about this please let us know or contact your primary care provider for additional instruction about taking your insulin while you are sick. If you get concerned regarding your sugar while at home please do not hesitate to come back to the ER. You have been prescribed an antibiotic today to help fight your infection. Please take all of the antibiotic as directed. If after 48 hours the infection is not improving, please return for more care. If the infection worsens, return to ER for additional care. Scripts Prednisone (PREDNISONE) 20 Mg Tablet 1 TAB PO BID, #10 TAB Prov: MONET WILSON APRN 06/10/19 Doxycycline Hyclate (DOXYCYCLINE HYCLATE) 100 Mg Capsule 1 CAP PO BID for 10 Days, #20 CAP Prov: MONET WILSON APRN 06/10/19 Problem Qualifiers Primary Impression: Pneumonia Pneumonia type: due to unspecified organism Laterality: right Lung location: lower lobe of lung Qualified Codes: J18.9 - Pneumonia, unspecified organism MONET WILSON APRN Jun 10, 2019 18:08
[2019-06-10] MEDS: methylPREDNISolone SOD SUCC PF 125 MG/2 ML VIAL. IM STA (18:12)
[2019-06-10] MEDS: IPRATRPIUM/ALBUTEROL 0.5/2.5MG 3 ML NEBU. NEB ONE (18:13)
[2019-06-10] MEDS ORDERED: DOXY100C2 PO (18:35)
[2019-06-10] MEDS ORDERED: PRED20TA PO (18:41)
--- NOTE | 2019-06-10 18:49 | RAD ---
EXAM: CHEST ONE VIEW. HISTORY: Cough. COMPARISON: 01/28/2018. FINDINGS: A frontal view of the chest is obtained. There are no confluent infiltrates. There is no pneumothorax or pleural effusion. The heart is not enlarged. IMPRESSION: 1. No confluent infiltrates. Electronically signed by: Sandy White MD (06/10/2019 6:46 PM) [facility]
== END 2019-06-10 18:49 | disposition home or self-care (01) ==
LOC: ER 17:35
DX: J18.9 Pneumonia, unspecified organism (principal); J44.1 Chronic obstructive pulmonary disease with (acute) exacerbation; I10 Essential (primary) hypertension; Z86.73 Personal history of transient ischemic attack (TIA), and cerebral infarction without residual deficits
CPT/HCPCS: 71046; 82962; 94640; 96372; 99284; J2930; J7620

== ENCOUNTER → 2019-11-07 | Outpatient (CLI) | payer OTHER ==
[2019-08-17 14:41] VITALS: BP 112/61
[~2019-11-07] MED LIST changes: +AMOX1TAB61 PO; +APIX5TAB PO; +DOXY100C2 PO; -FLUO20CA19 PO; +FLUO20CA20 PO; +PRED20TA PO; -ROPI1TAB2 PO; +ROPI1TAB4 PO
--- NOTE | 2019-11-07 15:44 | RAD ---
DATE: 11/07/2019 1:16 PM EXAM: DIGITAL SCREEN BILAT W/CAD HISTORY: Screening COMPARISON: 09/19/2015, 09/04/2018 Bilateral CC and MLO views of the breasts were performed.. This study was interpreted with the benefit of Computerized Aided Detection (CAD). FINDINGS: Breast Density: FATTY The Breast Parenchyma is primarily fatty replaced. Breast parenchyma level density A. Circumscribed 11 mm dense oval mass in the right axilla is unchanged from 2016, compatible with a benign etiology. No suspicious masses, microcalcifications or architectural distortion is present to suggest malignancy in either breast. The visualized axillae are otherwise unremarkable. IMPRESSION: No mammographic evidence of malignancy. BI-RADS CATEGORY: 2 BENIGN FINDING(S) RECOMMENDED FOLLOW-UP: 12M 12 MONTH FOLLOW-UP Annual screening mammography is recommended, unless clinically indicated sooner based on symptoms or change in physical exam. PQRS compliance statement: Patient information was entered into a reminder system with a target due date 11/07/2020 for the next mammogram. Mammography is a sensitive method for finding small breast cancers, but it does not detect them all and is not a substitute for careful clinical examination. A negative mammogram does not negate a clinically suspicious finding and should not result in delay in biopsying a clinically suspicious abnormality. "Our facility is accredited by the [employer] Mammography Program."
== END ==
LOC: MAMMO 13:04
PROVIDERS: ATTEND Family Medicine
DX: Z12.31 Encounter for screening mammogram for malignant neoplasm of breast (principal)
CPT/HCPCS: 77067

== ENCOUNTER → 2019-11-13 | Outpatient (CLI) | payer OTHER ==
[2019-08-17 14:41] VITALS: BP 112/61
[~2019-11-13] MED LIST changes: +REGADENOSON 0.4 MG/5 ML DISP.SYRIN. IV ONE
--- NOTE | 2019-11-13 13:32 | RAD ---
MR#: [id number] Date of Study: 11/13/2019 Ordering Physician: JIM ROSENTHAL Referring Physician: ERIC BRADLEY Tech: RODNEY Damon APPROVED REPORT Test Type: Pharmacological Stress Nurse/Tech: RODNEY Damon Test Indications: Dyspnea Cardiac History: COPD Diabetic Medications: see EHR Medical History: see EHR Resting ECG: SR Resting Heart Rate: 76 bpm Resting Blood Pressure: 126/61mmHg Pretest Chest Pain: None Nurse/Tech Notes Consent: The procedure was explained to the patient in lay terms. Informed consent was witnessed. Guy eout was entered into [employer]. History and Stress Test performed by RODNEY Damon Pharm. Details Pharmacologic stress testing was performed using 0.4mg per 5ml of regadenoson given intravenously ove r 7-10 seconds. INTERPRETATION Stress EKG Conclusion: The resting EKG shows a sinus rhythm, mild nonspecific ST-T wave changes and a small Q wave in V1. The stress EKG shows no significant changes from baseline. No EKG evidence of stress-induced ischemia Imaging Protocol IMAGE PROTOCOL: Rest Tc-99m/stress Tc-99m 1 day Rest: Stress: Viability: Radiopharm.Tc99m DdcjznevqJd87u Sestamibi Dose10.5mCi 33mCi Duration 15min. 10min. Img Date 11/13/2019 11/13/2019 Inj-Img Fqdi42pwb. 60min. Rest Admin Site:IV - Right HandAdministrator:RT Nessa (R)(N) Stress Admin Site: IV - Right HandAdministrator: RODNEY Damon STRESS DATA End Diast. Vol.63.0mlLVEDV index BSA36.0ml End Syst. Vol.2.0mlLVESV index BSA1.0ml Myocardial Ciby893.0gEject. Illvhxad16.0% Stress Scores Regional WT0.00Summed WT0.00 Regional WM0.00Summed WM0.00 LV Perfusion The stress scans showed no significant defects. The rest scans showed no significant defects. Nuclear imaging shows no reversible ischemia or infarct. Wall Motion Left ventricular systolic function is normal with an ejection fraction of greater than 70%. LV Perf. Quant 17 Seg. SSS0.00 17 Seg. SRS1.00 17 Seg. SDS0.00 Stress Defect Extent (% LAD)0.00Rest Defect Extent (% LAD)0.00Rev. Defect Extent (% LAD)0.00 Stress Defect Extent (% LCX) 0.00Rest Defect Extent (% LCX)7.50Rev. Defect Extent (% LCX)0.00 Stress Defect Extent (% RCA)0.00Rest Defect Extent (% RCA)0.00Rev. Defect Extent (% RCA)0.00 Stress Defect Extent (% KENY)0.00Rest Defect Extent (% KENY)1.30Rev. Defect Extent (% KENY)0.00 Conclusion 1. No EKG evidence of stress-induced ischemia. 2. Nuclear imaging shows no reversible ischemia or infarct. 3. Normal left ventricular systolic function with an ejection fraction of greater than 70%. 4. Low risk study. Signed by : Fabricio Diaz MD Electronically Approved : 11/13/2019 13:32:09
== END | disposition home or self-care (01) ==
LOC: NM 08:26
PROVIDERS: ATTEND Internal Medicine Cardiovascular Disease
DX: R06.02 Shortness of breath (principal); J44.9 Chronic obstructive pulmonary disease, unspecified; E11.9 Type 2 diabetes mellitus without complications
CPT/HCPCS: 78452; 93017; A9500; J2785

== ENCOUNTER → 2019-11-20 | Outpatient (CLI) | payer OTHER ==
[2019-08-17 14:41] VITALS: BP 112/61
[~2019-11-20] MED LIST changes: -REGADENOSON 0.4 MG/5 ML DISP.SYRIN. IV ONE
--- NOTE | 2019-11-20 15:56 | RAD ---
MR#: [id number] Date of Study: 11/20/2019 Ordering Physician: JIM ROSENTHAL, Referring Physician: JIM ROSENTHAL, Tech: APPROVED REPORT Patient Location: OUT-PATIENT Laterality:Bilateral Indications CVA/TIA: Doppler Spectral Velocity Analysis Right Left pCCA 84/10 cm/spCCA 78/22 cm/s mCCA 74/18 cm/smCCA 68/23 cm/s dCCA 71/20 cm/sdCCA 79/22 cm/s Bulb 45/16 cm/sBulb 89/27 cm/s ECA 85/ cm/sECA 136/ cm/s pICA 74/23 cm/spICA 186/42 cm/s Shelly 80/25 cm/smICA 150/38 cm/s dICA 73/20 cm/sdICA 97/23 cm/s Vert. 52/ cm/sVert. 51/ cm/s Subcl. 132/ cm/sSubcl. 206/ cm/s ICA/CCA 0.95ICA/CCA 2.38 Findings Grayscale images of the bilateral carotid vessels demonstrate mild disease on the right side and mild to moderate disease on the left side. On the right side based on velocity criteria overall 0 to less than 50% stenosis with normal ICA to C CA ratios and antegrade vertebral velocities. On the left side there is likely a moderate 50 to 69% stenosis based on velocity criteria involving t he proximal internal carotid artery with moderate diffuse plaque noted on grayscale images. Vertebra l velocities are antegrade. ICA to CCA ratios are mildly elevated at 2.7. Left vertebral velocity i s antegrade within normal limits. Critical Notification Critical Value: No <Conclusion> 1. Moderate left internal carotid arterial disease at approximately 50 to 69% stenosis based on [facility] criteria. Signed by : Sergio Herman, Electronically Approved : 11/20/2019 15:56:13
--- NOTE | 2019-11-20 15:58 | RAD ---
MR#: [id number] Date of Study: 11/20/2019 Ordering Physician: JIM ROSENTHAL, Referring Physician: JIM ROSENTHAL, Tech: Walter Epps MBA, RDMS, RVT, RDCS, RTR APPROVED REPORT Patient Location : OUT-PATIENT Indications Lower Extremity Edema : Bilateral Findings Grayscale images of the bilateral saphenofemoral junctions are grossly unremarkable. The right great saphenous vein measures 4.6 mm and the left great saphenous vein measures 4.7 mm. Both of the great er saphenous veins did not show any evidence of reflux. Limited evaluation of the left deep venous system from the common femoral artery to the popliteal seg ment demonstrates normal compressibility without any obvious evidence of DVT. Critical Notification Critical Value: No <Conclusion> 1. Negative for reflux in the bilateral greater saphenous veins. 2. Limited evaluation of the left lower extremity deep veins demonstrates no obvious evidence of thr ombus. Signed by : Sergio Herman, Electronically Approved : 11/20/2019 15:58:01
== END | disposition home or self-care (01) ==
LOC: US 13:28
PROVIDERS: ATTEND Internal Medicine Cardiovascular Disease
DX: I65.22 Occlusion and stenosis of left carotid artery (principal); I63.9 Cerebral infarction, unspecified; I25.10 Atherosclerotic heart disease of native coronary artery without angina pectoris
CPT/HCPCS: 93880; 93970

== ENCOUNTER → 2020-12-16 | Outpatient (CLI) | payer OTHER ==
[2020-11-13 14:56] VITALS: BP 103/53
[~2020-12-16] MED LIST changes: +ATOR40TA59 PO; -CLIN150C14 PO; +CLIN150C15 PO; +DOXY100T PO; -LISI-334 PO; +LISI-517 PO; +LISI20TA18 PO; +METO-239 PO; +MIRT-7 PO; -MIRT15TA3 PO
--- NOTE | 2020-12-16 11:25 | CARD ---
MR#: [id number] Date of Study: 12/16/2020 Ordering Physician: JIM LANDERS, Referring Physician: JIM LANDERS, Tech: APPROVED REPORT EXAM: Two-dimensional and M-mode echocardiogram with Doppler and color Doppler. INDICATION COPD Dyspnea Cardiac Disease: CAD RISK FACTORS Hyperlipidemia Smoking 2D DIMENSIONS RVDd3.8 (2.9-3.5cm)Left Atrium(2D)3.5 (1.6-4.0cm) IVSd1.0 (0.7-1.1cm)Aortic Root(2D)3.0 (2.0-3.7cm) LVDd4.7 (3.9-5.9cm)LVOT Diameter2.0 (1.8-2.4cm) PWd0.9 (0.7-1.1cm)LVDs3.6 (2.5-4.0cm) FS (%) 23.0 %SV46.4 ml LVEF(%)46.1 (>50%) Aortic Valve AoV Peak Dipak.159.4cm/sAoV VTI30.9cm AO Peak GR.10.2mmHgLVOT Peak Dipak.124.9cm/s LVOT VTI 24.42cmAO Mean GR.5mmHg JANEY (VMAX)2.85ok3MBU (VTI)2.56cm2 Mitral Valve MV E Zmjosgev46.4cm/sMV DECEL [id number] MV A Uhymvfqm94.4cm/sMV HNJ52us E/A Ratio1.2MVA (PHT)3.90cm2 TDI E/Lateral E'4.5E/Medial E'7.7 Pulmonary Valve PV Peak Enouhzob857.7cm/sPV Peak Grad.4mmHg Tricuspid Valve TR P. Rxiwtfrg113ln/sTR Peak Gr.29mmHg Pulmonary Vein S1 Hgtrsasi53.5cm/sD2 Qbjngsto24.5cm/s PVa [id number] LEFT VENTRICLE The left ventricle is normal size. There is normal left ventricular wall thickness. The left ventricu lar systolic function is normal. The Ejection Fraction is 50-55%. There is normal LV segmental wall m otion. The left ventricular diastolic function and filling is normal for age. RIGHT VENTRICLE The right ventricle is normal size. There is normal right ventricular wall thickness. The right ventr icular systolic function is normal. ATRIA The left atrium size is normal. The right atrium size is normal. The interatrial septum is intact wit h no evidence for an atrial septal defect or patent foramen ovale as noted on 2-D or Doppler imaging. AORTIC VALVE The aortic valve is normal in structure and function. Doppler and Color Flow revealed no significant aortic regurgitation. There is no significant aortic valvular stenosis. Calculated aortic valve area is 2.67 cm2 with maximum pressure gradient of 14 mmHg and mean pressure gradient of 7 mmHg. MITRAL VALVE The mitral valve is normal in structure and function. There is no evidence of mitral valve prolapse. There is no mitral valve stenosis. Doppler and Color Flow revealed no mitral valve regurgitation note d. TRICUSPID VALVE The tricuspid valve is normal in structure and function. Doppler and Color Flow revealed trace tricus pid regurgitation with an estimated PAP of 37 mmHg. There is no tricuspid valve stenosis. PULMONIC VALVE The pulmonic valve is not well visualized. Doppler and Color Flow revealed no pulmonic valvular regur gitation. GREAT VESSELS The aortic root is normal in size. The IVC is normal in size and collapses >50% with inspiration. PERICARDIAL EFFUSION There is no evidence of significant pericardial effusion. Critical Notification Critical Value: No <Conclusion> The left ventricular systolic function is normal. The Ejection Fraction is 50-55%. There is normal LV segmental wall motion. Trace tricuspid regurgitation with an estimated PAP of 37 mmHg. There is no evidence of significant pericardial effusion. Signed by : Jim Landers, Electronically Approved : 12/16/2020 11:24:50
== END ==
LOC: ECHO 09:46
PROVIDERS: ATTEND Internal Medicine Cardiovascular Disease
DX: I25.10 Atherosclerotic heart disease of native coronary artery without angina pectoris (principal)
CPT/HCPCS: 93306

== ENCOUNTER 2021-08-26 12:07 | Emergency (ER) | payer OTHER ==
[~2021-08-26] VITALS: Ht 154.9 cm; Wt 70.4 kg
[~2021-08-26 12:07] MED LIST changes: -CLIN150C15 PO; +CLIN150C16 PO; -DOXY100C2 PO; +DOXY100C3 PO; -FLUO20CA20 PO; +FLUO20CA22 PO; -LISI-517 PO; +LISI5TAB15 PO
[2021-08-26] MEDS ORDERED: methylPREDNISolone SOD SUCC PF 125 MG/2 ML VIAL. IV ONE (13:30)
[2021-08-26] MEDS ORDERED: MORPHINE SULFATE 2 MG/ML INJ. IVP ONE (13:30)
[2021-08-26] MEDS ORDERED: IPRATRPIUM/ALBUTEROL 0.5/2.5MG 3 ML NEBU. NEB ONE (13:30)
[2021-08-26 13:42] LABS: BASO % 0 % (0-3); EOS % 0 % (0-3); HEMATOCRIT 37.3 % (36.0-47.0); HEMOGLOBIN 11.9 g/dL (12.0-15.5); LYMPH # 0.9 x10^3/uL (1.0-4.8); LYMPH % 8 % (24-48); MEAN CORPUSCULAR HEMOGLOBIN 31 pg (25-35); MEAN CORPUSCULAR HGB CONC 32 g/dL (31-37); MEAN CORPUSCULAR VOLUME 97 fL (79-100); MONO # 0.8 x10^3/uL (0.0-1.1); MONO % 7 % (0-9); NEUT # 8.8 x10^3/uL (1.8-7.7); NEUT % 84 % (31-73); PLATELET COUNT 192 x10^3/uL (140-400); RED BLOOD COUNT 3.84 x10^6/uL (3.50-5.40); RED CELL DISTRIBUTION WIDTH 17.5 % (11.5-14.5); WHITE BLOOD COUNT 10.5 x10^3/uL (4.0-11.0)
[2021-08-26 13:46] LABS: CALCIUM 8.9 mg/dL (8.5-10.1); CREATININE 1.7 mg/dL (0.6-1.0); GFR 31.3; POTASSIUM 3.8 mmol/L (3.5-5.1)
[2021-08-26 13:52] LABS: ALBUMIN 3.6 g/dL (3.4-5.0); ALBUMIN/GLOBULIN RATIO 0.9 (1.0-1.7); MAGNESIUM 1.8 mg/dL (1.8-2.4); TOTAL BILIRUBIN 0.6 mg/dL (0.2-1.0); TOTAL PROTEIN 7.4 g/dL (6.4-8.2)
[2021-08-26 14:30] LABS: INFLUENZA A PATIENT NEGATIVE (NEGATIVE); INFLUENZA B PATIENT NEGATIVE (NEGATIVE)
--- NOTE | 2021-08-26 14:33 | RAD ---
CT Head W/O Contrast: History: Reason: fall, neck pain / Spl. Instructions: / History: Comparison: none Axial images were obtained without contrast. There is a large area of absent ventilation in the left frontoparietal lobe. There is a small area of encephalomalacia in the left occipital lobe. There is no mass effect, extraaxial fluid collections o r hydrocephalus. There is no gross bleed. There is no focal loss of galvan-white matter distinction t o suggest acute ischemia, i.e. stroke. Impression: Old strokes on the left. No acute findings. End of impression CT C-Spine without contrast: Clinical History: Reason: fall, neck pain / Spl. Instructions: / History: Technique: Axial helical images of the cervical spine were obtained without contrast, axial coronal and sagittal reconstruction was performed. Findings: There is no loss of vertebral body stature. There is no prevertebral soft tissue swelling. The vert ebral bodies are well aligned. There is mild reversal of the normal cervical lordosis which can be p ositional or could be chronic. The C1-C2 relationship is normal. The visualized osseous structures ap pear normal. Evaluation of the central canal is limited without contrast. There is multiple posterio r disc bulges resulting in flattening of the thecal sac. There does not appear to be gross flattening of the cervical cord. There is moderate narrowing of multiple neuroforamen. Impression: No acute findings. Clinical correlation suggested. PQRS Compliance Statement: One or more of the following individualized dose reduction techniques were utilized for this examinat ion: 1. Automated exposure control 2. Adjustment of the mA and/or kV according to patient size 3. Use of iterative reconstruction technique Electronically signed by: Edgardo Miller III, MD (08/26/2021 2:30 PM) [facility]
--- NOTE | 2021-08-26 15:09 | RAD ---
CT chest abdomen and pelvis without contrast: History: Pain status post fall Axial helical images of the chest, abdomen and pelvis were obtained without IV contrast. Comparison: none CT chest without contrast: There is patchy opacities in the peripheral lungs which are likely discoid atelectasis. There is cons olidation in the lingula. There is multiple old rib fractures bilaterally. There is an acute mildly displaced fracture of the p osterior left ninth rib. There is no mediastinal lymphadenopathy or hematoma. There is no hilar lymphadenopathy. Impression: 1. Acute fracture of the left posterior ninth rib. 2. Consolidation in the lingula could be inflammatory or infectious. End Impression CT ABDOMEN and pelvis without IV CONTRAST: Findings: There has been prior cholecystectomy. The appendix is normal. The uterus is large and bulky. Liver: Unremarkable Spleen: Unremarkable Pancreas: Unremarkable Adrenal Glands: Unremarkable Kidneys: Unremarkable Evaluation of stomach and bowel is limited without oral contrast. Evaluation of solid organs is limit ed without IV contrast. There is no mass or lymphadenopathy. There is no free air. There is no free fluid. The bladder appears normal. Impression: 1. Large bulky fibroid uterus. Recommend follow-up with gynecology. 2. No acute findings. End impression CT thoracic spine without contrast History: Reason: fall, back pain / Spl. Instructions: / History: Axial helical images of the thoracic spine were obtained without contrast. Axial, coronal and sagitta l reconstruction was performed. Findings: The vertebral bodies are aligned. There is no loss of vertebral body stature. Evaluation of the central canal is limited without contrast. There is no evidence of significant cent ral or neuroforaminal stenosis. Impression: No acute findings. End of impression CT lumbar spine without contrast History: Back pain Axial helical images of the lumbar spine were obtained without contrast. Axial, coronal and sagittal reconstruction was performed. Findings: The vertebral bodies are aligned. There is chronic degenerative changes at L4-L5 with loss of interve rtebral disc material in vacuum changes. Mild loss of stature of the L5 vertebral body due to project ion of the superior endplate appears to be due to degenerative changes. Evaluation of the central canal is limited without contrast. There is moderate central stenosis and n euroforaminal stenosis at L4-L5 and neural foraminal stenosis on the left at L5-S1. Impression: No acute findings. PQRS Compliance Statement: One or more of the following individualized dose reduction techniques were utilized for this examinat ion: 1. Automated exposure control 2. Adjustment of the mA and/or kV according to patient size 3. Use of iterative reconstruction technique Electronically signed by: Edgardo Miller III, MD (08/26/2021 3:06 PM) [facility]
[2021-08-26 16:00] VITALS: BP 112/60
[2021-08-26] MEDS ORDERED: CYCL5TAB PO (16:29)
[2021-08-26] MEDS ORDERED: HYDR-2761 PO (16:29)
--- NOTE | 2021-08-26 16:31 | PHYS DOC ---
Past Medical History Past Medical History: Asthma, Bronchitis, COPD, CVA, Hypertension Past Surgical History: No Surgical History Additional Past Surgical Histo: endarectomy Smoking Status: Current Every Day Smoker Additional Information: <1/2 ppd Alcohol Use: None Drug Use: None Adult General Chief Complaint Chief Complaint: MECHANICAL FALL HPI HPI Patient is a 55 year old female with left-sided back pain post fall. The patient states that she had gotten up about 2 in the morning at home and fell on the floor in the hallway. She simply lost her balance and landed on the left side of her body. She is complaining of back pain close to the junction of the thoracic and lumbar spine. She does have some pain with inspiration and was noted to be hypoxic as well with a pulse ox of 60%. She has been feeling short of breath with exertion but not at rest. She does use oxygen at home at baseline. No cough or anterior chest pain, no fever. Review of Systems Review of Systems Constitutional: Denies fever Eyes: Denies change in visual acuity or eye pain HENT: Denies sore throat Respiratory: Reports shortness of breath with exertion Cardiovascular: Reports posterior chest pain at lower left rib cage GI: Denies abd pain : Denies dysuria Musculoskeletal: Denies extremity injury Integument: Denies rash or skin lesions Neurologic: Denies headache, focal weakness or sensory changes All other systems were reviewed and found to be within normal limits, except as documented in this note. Current Medications Current Medications Current Medications Medications (Trade) Dose Ordered Sig/Luisana Start Time Stop Time Status Last Admin Dose Admin Albuterol/ Ipratropium (Duoneb) 3 ml 1X ONCE 08/26/21 13:30 08/26/21 13:32 DC 08/26/21 13:52 3 ML Methylprednisolone Sodium Succinate (SOLU-Medrol 125MG VIAL) 125 mg 1X ONCE 08/26/21 13:30 08/26/21 13:32 DC 08/26/21 14:01 125 MG Morphine Sulfate (Morphine Sulfate) 2 mg 1X ONCE 08/26/21 13:30 08/26/21 13:32 DC 08/26/21 13:57 2 MG Allergies Allergies Allergies Coded Allergies Type Severity Reaction Last Updated Verified No Known Drug Allergies 11/09/20 No Physical Exam Physical Exam Constitutional: Well developed, well nourished, mild distress, non-toxic appearance. HENT: Normocephalic, atraumatic, bilateral external ears normal, mucosa moist, nose normal. Eyes: EOMI, conjunctiva normal, no discharge. Neck: Normal range of motion, supple, no stridor, no meningeal signs. Cardiovascular: Regular rate and rhythm Lungs & Thorax: Initially patient had some wheezing bilaterally, after treatment bilateral breath sounds clear to auscultation, patient does have some left-sided back pain at the lower thoracic/upper lumbar spine Abdomen: Soft, no tenderness or obvious masses Skin: Warm, dry, no erythema, no rash. Extremities: No tenderness, no cyanosis, no clubbing, ROM intact, no edema. Neurologic: Alert and oriented, normal motor function, normal sensory function, no focal deficits noted. Psychologic: Affect normal, judgement normal, mood normal. Current Patient Data Vital Signs Vital Signs Date Time Temp Pulse Resp B/P (MAP) Pulse Ox O2 Delivery O2 Flow Rate FiO2 08/26/21 14:06 98 24 106/59 (75) 93 Nasal Cannula 4.0 08/26/21 12:33 98.2 98.2 Lab Values Laboratory Tests Test 08/26/21 13:05 08/26/21 14:05 White Blood Count 10.5 x10^3/uL (4.0-11.0) Red Blood Count 3.84 x10^6/uL (3.50-5.40) Hemoglobin 11.9 g/dL (12.0-15.5) L Hematocrit 37.3 % (36.0-47.0) Mean Corpuscular Volume 97 fL (79-100) Mean Corpuscular Hemoglobin 31 pg (25-35) Mean Corpuscular Hemoglobin Concent 32 g/dL (31-37) Red Cell Distribution Width 17.5 % (11.5-14.5) H Platelet Count 192 x10^3/uL (140-400) Neutrophils (%) (Auto) 84 % (31-73) H Lymphocytes (%) (Auto) 8 % (24-48) L Monocytes (%) (Auto) 7 % (0-9) Eosinophils (%) (Auto) 0 % (0-3) Basophils (%) (Auto) 0 % (0-3) Neutrophils # (Auto) 8.8 x10^3/uL (1.8-7.7) H Lymphocytes # (Auto) 0.9 x10^3/uL (1.0-4.8) L Monocytes # (Auto) 0.8 x10^3/uL (0.0-1.1) Eosinophils # (Auto) 0.0 x10^3/uL (0.0-0.7) Basophils # (Auto) 0.0 x10^3/uL (0.0-0.2) Prothrombin Time 16.0 SEC (11.7-14.0) H Prothrombin Time INR 1.3 (0.8-1.1) H Activated Partial Thromboplast Time 29 SEC (24-38) Sodium Level 143 mmol/L (136-145) Potassium Level 3.8 mmol/L (3.5-5.1) Chloride Level 102 mmol/L (98-107) Carbon Dioxide Level 35 mmol/L (21-32) H Anion Gap 6 (6-14) Blood Urea Nitrogen 22 mg/dL (7-20) H Creatinine 1.7 mg/dL (0.6-1.0) H Estimated GFR (Cockcroft-Gault) 31.3 BUN/Creatinine Ratio 13 (6-20) Glucose Level 168 mg/dL (70-99) H Lactic Acid Level 0.9 mmol/L (0.4-2.0) Calcium Level 8.9 mg/dL (8.5-10.1) Magnesium Level 1.8 mg/dL (1.8-2.4) Total Bilirubin 0.6 mg/dL (0.2-1.0) Aspartate Amino Transferase (AST) 31 U/L (15-37) Alanine Aminotransferase (ALT) 38 U/L (14-59) Alkaline Phosphatase 92 U/L (46-116) Creatine Kinase 367 U/L (26-192) H Troponin I High Sensitivity 27 ng/L (4-50) Total Protein 7.4 g/dL (6.4-8.2) Albumin 3.6 g/dL (3.4-5.0) Albumin/Globulin Ratio 0.9 (1.0-1.7) L Lipase 139 U/L (73-393) Influenza Type A Antigen Negative (NEGATIVE) Influenza Type B Antigen Negative (NEGATIVE) SARS-CoV-2 Antigen (Rapid) Negative (NEGATIVE) Laboratory Tests 08/26/21 13:05 Laboratory Tests 08/26/21 13:05 EKG EKG [] Interpretation Time: Twelve-lead EKG demonstrates a sinus rhythm with an overall rate of 99. MN, QRS and QT corrected intervals are within normal limits. Patient does have a bit of ST depression in leads V3 through V6, this is maybe 1 mm at the most. T waves are flipped in these leads as well. Radiology/Procedures Radiology/Procedures [] Impressions: PATIENT: MAHESH SHEA LACCOUNT: [id number]#: [id number] : 1965 LOCATION: ER AGE: 55 SEX: F EXAM STATUS: REG ER ORD. PHYSICIAN: SALLY SANDERS MD REASON: fall, neck pain PROCEDURE: CT HEAD AND CERVICAL SPINE WO CT Head W/O Contrast: History: Reason: fall, neck pain / Spl. Instructions: / History: Comparison: none Axial images were obtained without contrast. There is a large area of absent ventilation in the left frontoparietal lobe. There is a small area of encephalomalacia in the left occipital lobe. There is no mass effect, extraaxial fluid collections or hydrocephalus. There is no gross bleed. There is no focal loss of galvan-white matter distinction to suggest acute ischemia, i.e. stroke. Impression: Old strokes on the left. No acute findings. End of impression CT C-Spine without contrast: Clinical History: Reason: fall, neck pain / Spl. Instructions: / History: Technique: Axial helical images of the cervical spine were obtained without contrast, axial coronal and sagittal reconstruction was performed. Findings: There is no loss of vertebral body stature. There is no prevertebral soft tissue swelling. The vertebral bodies are well aligned. There is mild reversal of the normal cervical lordosis which can be positional or could be chronic. The C1-C2 relationship is normal. The visualized osseous structures appear norm al. Evaluation of the central canal is limited without contrast. There is multiple posterior disc bulges resulting in flattening of the thecal sac. There does not appear to be gross flattening of the cervical cord. There is moderate narrowing of multiple neuroforamen. Impression: No acute findings. Clinical correlation suggested. PQRS Compliance Statement: One or more of the following individualized dose reduction techniques were utilized for this examination: 1. Automated exposure control 2. Adjustment of the mA and/or kV according to patient size 3. Use of iterative reconstruction technique PATIENT: MAHESH SHEA ACCOUNT: [id number] : 1965 LOCATION: ER AGE: 55 SEX: F EXAM STATUS: REG ER ORD. PHYSICIAN: SALLY SANDERS MD REASON: fall, rib pain PROCEDURE: CT CHEST ABDOMEN PELVIS WO CT chest abdomen and pelvis without contrast: History: Pain status post fall Axial helical images of the chest, abdomen and pelvis were obtained without IV contrast. Comparison: none CT chest without contrast: There is patchy opacities in the peripheral lungs which are likely discoid atelectasis. There is consolidation in the lingula. There is multiple old rib fractures bilaterally. There is an acute mildly displaced fracture of the posterior left ninth rib. There is no mediastinal lymphadenopathy or hematoma. There is no hilar lym phadenopathy. Impression: 1. Acute fracture of the left posterior ninth rib. 2. Consolidation in the lingula could be inflammatory or infectious. End Impression CT ABDOMEN and pelvis without IV CONTRAST: Findings: There has been prior cholecystectomy. The appendix is normal. The uterus is large and bulky. Liver: Unremarkable Spleen: Unremarkable Pancreas: Unremarkable Adrenal Glands: Unremarkable Kidneys: Unremarkable Evaluation of stomach and bowel is limited without oral contrast. Evaluation of solid organs is limited without IV contrast. There is no mass or lymphadenopathy. There is no free air. There is no free fluid. The bladder appears normal. Impression: 1. Large bulky fibroid uterus. Recommend follow-up with gynecology. 2. No acute findings. End impression CT thoracic spine without contrast History: Reason: fall, back pain / Spl. Instructions: / History: Axial helical images of the thoracic spine were obtained without contrast. Axial, coronal and sagittal reconstruction was performed. Findings: The vertebral bodies are aligned. There is no loss of vertebral body stature. Evaluation of the central canal is limited without contrast. There is no evid ence of significant central or neuroforaminal stenosis. Impression: No acute findings. End of impression CT lumbar spine without contrast History: Back pain Axial helical images of the lumbar spine were obtained without contrast. Axial, coronal and sagittal reconstruction was performed. Findings: The vertebral bodies are aligned. There is chronic degenerative changes at L4-L5 with loss of intervertebral disc material in vacuum changes. Mild loss of stature of the L5 vertebral body due to projection of the superior endplate appears to be due to degenerative changes. Evaluation of the central canal is limited without contrast. There is moderate central stenosis and neuroforaminal stenosis at L4-L5 and neural foraminal stenosis on the left at L5-S1. Impression: No acute findings. PQRS Compliance Statement: One or more of the following individualized dose reduction techniques were utilized for this examination: 1. Automated exposure control 2. Adjustment of the mA and/or kV according to patient size 3. Use of iterative reconstruction technique Electronically signed by: Edgardo Miller III, MD (08/26/2021 3:06 PM) [facility] Course & Med Decision Making Course & Med Decision Making Pertinent Labs and Imaging studies reviewed. (See chart for details) [] Is a 55-year-old female with back pain post fall. She was also noted to be hypoxic initially and has wheezing on exam. CT of the head and cervical spine were both obtained, the demonstrated a an old stroke but nothing acute. CT of the chest abdomen and pelvis with thoracic and lumbar spine reconstructions also obtained. This demonstrates posterior ninth rib fracture on the left side which is mildly displaced. Patient was given breathing treatment and on reassessment her respiratory symptoms are much improved. Initially I was going to admit the patient given her symptoms and initial degree of hypoxia but the patient states that she wants to go home. She has plenty of DuoNeb treatments at home with a home nebulizer. We will give her prescriptions for [place] and Flexeril and have her follow-up with her primary care physician if she is not getting better in the next few days, return to the emergency department if she comes worse or other concerns arise, she is stable for discharge at this time. Dragon Disclaimer Dragon Disclaimer This electronic medical record was generated, in whole or in part, using a voice recognition dictation system. Departure Departure Impression: Primary Impression: Rib fracture Additional Impression: COPD with exacerbation Disposition: 01 HOME / SELF CARE / HOMELESS Condition: STABLE Referrals: HERNANDO BOWIE MD (PCP) Patient Instructions: Rib Fracture Scripts Hydrocodone Bit/Acetaminophen (HYDROCODONE-APAP 5-325 ) 1 Tab Tablet 1 TAB PO PRN Q6HRS PRN for PAIN, #12 TAB 0 Refills Prov: SALLY SANDERS MD 08/26/21 Cyclobenzaprine Hcl (CYCLOBENZAPRINE HCL) 5 Mg Tablet 5 MG PO PRN TID PRN for PAIN, #15 TAB Prov: SALLY SANDERS MD 08/26/21 Problem Qualifiers SALLY SANDERS MD Aug 26, 2021 16:31
--- NOTE | 2021-08-27 07:53 | EKG ---
[facility] [address] [place] [address] Test Date: 2021-08-26 Test Time: 13:23:54 Pat Name: MAHESH SHEA Department: Room: Gender: F Train Controller: : 1965 Requested By: SALLY SANDERS Order Number: [id number] Reading MD: Sergio Herman MD Measurements Intervals [place] Rate: 99 P: 51 MT: 156 QRS: 28 QRSD: 86 T: -43 QT: 330 QTc: 423 Interpretive Statements SINUS RHYTHM Consider anterolateral ischemia Electronically Signed On 08-28-2021 17:43:37 CDT by Sergio Herman MD
== END 2021-08-26 17:23 | disposition home or self-care (01) ==
LOC: ER 12:07
DX: S22.32XA Fracture of one rib, left side, initial encounter for closed fracture (principal); J44.1 Chronic obstructive pulmonary disease with (acute) exacerbation; I10 Essential (primary) hypertension; F17.200 Nicotine dependence, unspecified, uncomplicated; Z20.822 Contact with and (suspected) exposure to COVID-19; Z86.73 Personal history of transient ischemic attack (TIA), and cerebral infarction without residual deficits; W18.39XA Other fall on same level, initial encounter; Y93.89 Activity, other specified; Y92.098 Other place in other non-institutional residence as the place of occurrence of the external cause; Y99.8 Other external cause status
CPT/HCPCS: 70450; 71250; 72125; 74176; 80053; 82550; 83605; 83690; 83735; 84484; 85025; 85610; 85730; 87428; 93005; 94640; 96374; 96375; 99285; J2270; J2930